=== PATIENT | male | born 1980 | race Caucasian/White ===

== ENCOUNTER 2021-07-13 22:37 | Emergency (ER) | payer SELFPAY ==
--- NOTE | ~2021-07-13 | XR_ITS ---
XR chest 2V DATE: 07/13/2021 22:47 INDICATION: Midsternal chest pain for one year. Shortness of breath. TECHNIQUE: PA and lateral views COMPARISON: 03/31/2017 AP chest FINDINGS: Heart size is within normal range. No hilar or mediastinal enlargement. No pulmonary infilt rate or consolidation, pleural effusion or pulmonary vascular congestion or pneumothorax is detected. Included skeletal structures are unremarkable. Degenerative spurring of the thoracic spine. IMPRESSION: No active cardiopulmonary disease Reviewed, dictated and finalized at location A.
--- NOTE | 2021-07-13 22:40 | ECG_ITS ---
Measurements Intervals [place] Rate: 95 P: 47 HI: 152 QRS: -17 QRSD: 102 T: 107 QT: 371 QTc: 467 Interpretive Statements SINUS RHYTHM POSSIBLE LEFT ATRIAL ENLARGEMENT INCOMPLETE RIGHT BUNDLE BRANCH BLOCK POOR R WAVE PROGRESSION, ANTERIOR LEADS BORDERLINE ST-T WAVE ABNORMALITY- INF/HIGH LAT LEADS BASELINE WANDER- II, III BORDERLINE ECG Electronically Signed On 07-14-2021 6:33:21 CDT by Braden Fernandez D.O.
[2021-07-13 23:17] LABS: Basophils Percent Auto 0.4 % (0.2-1.2); Eosinophils Percent Auto 2.1 % (0-4.4); Hemoglobin 15.5 g/dL (14.0-18.0); Immature Granulocyte Absolute 0.04 K/mm3 (0.00-0.031); Immature Granulocyte Percent A 0.4 % (0-0.5); Lymphocytes Percent Auto 22.4 % (18.3-44.2); Mean Corpuscular Hemoglobin 27.8 pg (26-34); Mean Corpuscular Volume 84.2 fl (80-100); Mean Platelet Volume 10.8 fl (7.4-10.4); Neutrophils Absolute Auto 6.3 K/mm3 (1.3-6.7); Neutrophils Percent Auto 65.7 % (45.5-73.1); Platelet Count Result 288 k/mm3 (150-375); Red Blood Count 5.58 M/mm3 (4.6-6.20); Red Cell Distribution Width 14.2 % (11.5-14.5); White Blood Count 9.6 K/mm3 (4.5-10.0)
[2021-07-13 23:18] LABS: Eosinophils Absolute Auto 0.2 K/mm3 (0-0.3); Lymphocytes Absolute Auto 2.14 K/mm3 (0.9-3.2); Monocytes Absolute Auto 0.9 K/mm3 (0.1-0.6)
[2021-07-13 23:28] LABS: Anion Gap 5 mmol/L (8-16); Blood Urea Nitrogen 11 mg/dL (9-20); Calcium 8.9 mg/dL (8.4-10.2); Carbon Dioxide 29 mmol/L (22-30); Chloride 105 mmol/L (98-107); Estimated Glomerular Filt Rate > 60; Glucose 122 mg/dL (65-110); Potassium 3.6 mmol/L (3.4-5.0); Sodium 139 mmol/L (137-145)
== END 2021-07-14 01:33 | disposition left against medical advice (07) ==
PROVIDERS: Emergency Provider Emergency Medicine
DX: Z53.21 Procedure and treatment not carried out due to patient leaving prior to being seen by health care provider (principal)
CPT/HCPCS: 36415; 71046; 80048; 85025; 93005; 99199

== ENCOUNTER 2021-10-23 16:38 | Observation (INO) | payer MEDICAID, SELFPAY ==
[2021-10-23] VITALS (31 sets, daily range): BP systolic 108–163; BP diastolic 57–99; PULSE 87–108; RESP 17–38; TEMP 36.3–37.9; O2SAT 91–99; BMI 43.4; BMI 43.3
--- NOTE | ~2021-10-23 | CT_ITS ---
EXAMINATION: CTA chest PE protocol DATE: 10/23/2021 18:51 MODEL AND DYE PERSON INDICATION: Elevated d-dimer. Hypoxia. TECHNIQUE: Computed tomographic angiography (CTA) of the chest was performed with 100 mL Omnipaque-35 0 intravenous contrast. The dose-length product was 1054.40 mGy-cm. Maximum intensity projection 3D-r econstructions of the aorta and other arteries were constructed by the technologist on a separate wor kstation. Automated exposure control and iterative reconstruction technique were employed. COMPARISON: None. FINDINGS: Study is technically limited. No large central pulmonary embolism. The peripheral pulmonary arteries particularly in the lower lobes are not well evaluated due to enhancement and motion. 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 No significant pleural or pericardial effusion. There is patchy bilateral groundglass opacification , consistent with pneumonia. No endobronchial lesions. No pneumothorax. No acute osseous abnormality. Mild mediastinal and right hilar lymphadenopathy, likely reactive. Mild thoracic spondylosis. IMPRESSION: 1. Patchy bilateral groundglass opacities, consistent with pneumonia. 2: No large central pulmonary embolism. Evaluation of the peripheral pulmonary arteries limited by m otion. Reviewed, dictated and finalized at location A. L AND DYE PERSON IMPRESSION: 1. Patchy bilateral groundglass opacities, consistent with pneumonia. 2: No large central pulmonary embolism. Evaluation of the peripheral pulmonary arteries limited by motion.
--- NOTE | ~2021-10-23 | XR_ITS ---
XR chest 2V 10/23/2021 17:59 Indication: Shortness of breath, cough and weakness Procedure: AP and lateral views of the chest Comparison: Comparison to multiple prior studies sequentially, with oldest reviewed study dated 10/28. Findings: Borderline heart size. No focal air space disease, pulmonary edema, pleural effusion or dayana pected pneumothorax. Shallow inspiration with crowding of the pulmonary vessels. Impression: 1: No acute cardiopulmonary disease. Reviewed, dictated and finalized at location A. IC WORKER FITTER Impression: 1: No acute cardiopulmonary disease.
--- NOTE | 2021-10-23 16:52 | ECG_ITS ---
Measurements Intervals [place] Rate: 95 P: 26 IN: 128 QRS: 9 QRSD: 104 T: 120 QT: 360 QTc: 453 Interpretive Statements SINUS RHYTHM POSSIBLE LEFT ATRIAL ENLARGEMENT INCOMPLETE RIGHT BUNDLE BRANCH BLOCK BORDERLINE R WAVE PROGRESSION, ANTERIOR LEADS ST-T WAVE ABNORMALITY IN HIGH LATERAL LEADS- CONSIDER ISCHEMIA BASELINE WANDER- I, II, AVR, AVL, V1-V2 ABNORMAL ECG Electronically Signed On 10-24-2021 9:22:56 ELECTRIC SCOOP OPERATOR by Braden Fernandez D.O.
[2021-10-23] MEDS: ALBUTEROL SULFATE NEB 2.5 MG/0.5 ML INH 5 MG INHALATION (17:05)
[2021-10-23] MEDS: IPRATROPIUM BR 0.02% INH SOLN 0.5 MG/2.5 ML VIAL INHALATION (17:05)
--- NOTE | 2021-10-23 17:09 | ED.WEAKNESS ---
HPI - Weakness General Chief complaint: Weakness Stated complaint: WEAKNESS/DIZZY Time Seen by Provider: 10/23/21 16:42 Source: patient History of Present Illness HPI Narrative: Patient presents cough, congestion, shortness of breath, diffuse body aches for the past 2 weeks. Reports overall he just feels weak and cannot manage his symptoms anymore so he came to the ER for evaluation. Denies any past medical history but reports he is not see physicians for regular checkups. He denies any focal areas of pain such as chest pain or abdominal pain does report mild nausea diarrhea as well. Reports is not vaccinated against Covid but does not have any known sick contacts. Related Data Allergies Allergy/AdvReac Type Severity Reaction Status Date / Time codeine Allergy Mild Verified 03/31/17 12:17 Penicillins Allergy Mild Verified 03/31/17 12:17 Review of Systems Review of Systems: CONSTITUTIONAL: Denies fever, chills, or sweats. EYES: Denies visual changes, redness, or discharge. ENT: Denies rhinorrhea, congestion, sore throat, or otalgia. CARDIOVASCULAR: Denies chest pain, palpitations, or edema. RESPIRATORY: Cough and shortness of breath GASTROINTESTINAL: Denies abdominal pain, vomiting, or diarrhea. GENITOURINARY: Denies dysuria or hematuria. SKIN: Denies rash or itching. MUSCULOSKELETAL: Denies back pain, joint pain, or myalgia. NEUROLOGIC: Denies headache, numbness, dizziness, or weakness. PSYCHIATRIC: Denies anxiety or depression. All systems reviewed & are unremarkable except as noted in HPI and below PMFSH Past Medical History Medical History (Updated 10/23/21 @ 20:09 by Dereje Lopez MD) Patient denies significant medical history Social History Social History (Updated 10/23/21 @ 17:11 by Dereje Lopez MD) Smoking status: Never smoker Alcohol intake: former Substance use: never Exam Narrative: GENERAL: Well-appearing, well-nourished, and in no acute distress. HEAD: Normocephalic, atraumatic. EYES: PERRLA and EOMI. ENT: Nares clear, no rhinorrhea or epistaxis. Mucous membranes moist. NECK: Supple. No masses. No JVD CHEST: Mild diffuse wheezing HEART: Regular rate and rhythm. No murmur heard. Normal peripheral pulses. ABDOMEN: Soft, nontender, nondistended, normal active bowel sounds. EXTREMITIES: Normal range of motion. No edema. SKIN: Warm, dry, no rash. NEURO: No focal deficits. Alert and oriented x3. PSYCH: Normal mood and affect. Course Reevaluation(s) Reevaluation #1: Patient feels somewhat improved work-up thus far reviewed with patient. Given his persistent hypoxia patient will be admitted for further management. Patient comfortable inpatient plan. Date: 10/23/21 Time: 20:07 Vital Signs Vital signs: Vital Signs Temperature 37.9 C H 10/23/21 16:43 Pulse Rate 94 10/23/21 16:43 Respiratory Rate 25 H 10/23/21 16:43 Blood Pressure 152/87 H 10/23/21 16:43 Pulse Oximetry 95 10/23/21 16:43 Temperature 37.5 C 10/23/21 21:16 Pulse Rate 93 10/23/21 21:16 Respiratory Rate 27 H 10/23/21 21:16 Blood Pressure 163/86 H 10/23/21 21:16 Pulse Oximetry 96 10/23/21 21:16 MDM - Weakness MDM Narrative Medical decision making narrative: Patient has with cough, congestion, shortness of breath. Patient overall looks clinically well vital signs notable for tachypnea fever and hypoxia. Labs and imaging obtained. Labs were reassuring with section of dimer. Imaging obtained and was without PE but suggestive of pneumonia with diffuse opacities. Primary concern is for Covid however Covid test is pending so patient is empirically started on antibiotics. Patient was given DuoNeb therapies given his wheezing on exam. Due to persistent hypoxia was admitted with team for further management. Patient is comfortable inpatient plan. Lab Data Result diagrams: 10/23/21 17:26 10/23/21 17:26 Labs: Lab Results 10/23/21 10/23/21 10/23/21 Range/Units
[2021-10-23] MEDS: DEXAMETHASONE SOD PHOS INJ 4 MG/ML VIAL 6 MG IV PUSH (17:21)
[2021-10-23] MEDS: SODIUM CHLORIDE 0.9% IV 1,000 ML 999 ML IV CONT (17:21)
[2021-10-23 17:32] LABS: Basophils Percent Auto 0.3 % (0.2-1.2); Hematocrit 51.3 % (42.0-52.0); Hemoglobin 16.9 g/dL (14.0-18.0); Immature Granulocyte Absolute 0.03 K/mm3 (0.00-0.031); Immature Granulocyte Percent A 0.4 % (0-0.5); Lymphocytes Absolute Auto 1.05 K/mm3 (0.9-3.2); Lymphocytes Percent Auto 13.3 % (18.3-44.2); Mean Corpuscular HGB Conc 32.9 g/dl (32-36); Mean Corpuscular Hemoglobin 27.7 pg (26-34); Mean Corpuscular Volume 84.1 fl (80-100); Mean Platelet Volume 11.2 fl (7.4-10.4); Monocytes Absolute Auto 0.6 K/mm3 (0.1-0.6); Monocytes Percent Auto 7.3 % (2.6-8.5); Neutrophils Absolute Auto 6.2 K/mm3 (1.3-6.7); Neutrophils Percent Auto 78.7 % (45.5-73.1); Platelet Count Result 274 k/mm3 (150-375); Red Cell Distribution Width 13.7 % (11.5-14.5); White Blood Count 7.9 K/mm3 (4.5-10.0)
[2021-10-23 17:36] LABS: Alveolar/Arterial O2 Gradient 69.4 mmHg; Fractional Inspired Oxygen 28 %; HCO3 ABG 29.2 mEq/l (22.0-26.0); Oxygen Content ABG 22.3 %vol (16.0-22.0); Oxygen Saturation ABG 95.5 % (95.0-100.0); Oxyhemoglobin 93.9 % THb (90.0-100.0); PCO2 ABG 45.7 mmHg (35.0-45.0); PO2 ABG 76.3 mmHg (80.0-100.0); PO2 FiO2 Ratio Arterial Blood 2.73 %; Total Hemoglobin 16.9 g/dL (12.0-18.0); pH ABG 7.424 (7.350-7.450)
[2021-10-23 17:39] LABS: Modified Allen's Test Pass; Site Drawn LEFT RADIAL
[2021-10-23 17:40] LABS: Device NASAL CANNULA
[2021-10-23 17:45] LABS: Alanine Aminotransferase 129 U/L (4-50); Alkaline Phosphatase 70 U/L (38-126); Anion Gap 7 mmol/L (8-16); Aspartate Amino Transferase 221 U/L (17-59); Bilirubin,Total 0.8 mg/dL (0.2-1.3); Blood Urea Nitrogen 22 mg/dL (9-20); Calcium 8.3 mg/dL (8.4-10.2); Carbon Dioxide 35 mmol/L (22-30); Chloride 91 mmol/L (98-107); Estimated CRCL calculation 90 ml/min; Estimated Glomerular Filt Rate > 60; Glucose 117 mg/dL (65-110); Magnesium 2.3 mg/dL (1.6-2.3); Sodium 133 mmol/L (137-145)
[2021-10-23 18:04] LABS: D Dimer 2.57 ug/mL (<0.48)
--- NOTE | 2021-10-23 20:07 | PM.IMHP ---
H&P: HPI History of Present Illness Date/Time: 10/23/21 20:07 Chief Complaint: Chest pain Narrative: This is a 40-year-old male with known significant past medical history however patient has not been to a doctor in many years. He comes today to the emergency room because he has not been feeling well for the last 2 weeks or so has been having body aches and pains ,chills ,fevers, cough productive of scanty white phlegm, poor appetite has not been drinking or eating, shortness of breath, generalized malaise, no nausea, no vomiting, no diarrhea, no abdominal pain. In the emergency room patient was found to be tachypneic and was placed on supplemental oxygen by nasal cannula preliminary workup was significant for chest x-ray with diffuse bilateral lung infiltrates an ABG showed a pH of 7.4 pCO2 of 45 and PO2 of 76. A COVID 19 PCR is pending. Patient has been admitted for further evaluation, management and treatment. Review of Systems Review of Systems: Generalized malaise, fevers, chills, poor appetite, muscle aches and pains, shortness of breath, cough productive of scanty white phlegm. Constitutional: Constitutional: Reports chills, Reports fatigue, Reports fever(s), Reports lethargy, Reports malaise and Reports poor appetite Eyes: Eyes: Denies change in vision ENT: Denies dysphagia, Denies vertigo, Denies dizziness, Denies nasal congestion, Denies nasal discharge, Denies nasal obstruction and Denies odynophagia Cardiovascular: Cardiovascular: Denies irregular heart rhythm, Denies claudication, Denies leg edema, Denies lightheadedness, Denies radiating jaw, neck or arm pain, Denies palpitations, Denies dyspnea, Denies dyspnea on exertion and Denies orthopnea Respiratory: Respiratory: Reports cough, Reports dyspnea and Reports dyspnea on exertion Gastrointestinal: Gastrointestinal: Denies abdominal pain, Denies dyspepsia, Denies heartburn, Denies diarrhea, Denies nausea and Denies vomiting Genitourinary: Genitourinary: Denies dysuria Musculoskeletal: Musculoskeletal: Reports myalgias, Denies arthralgias and Denies joint swelling Integumentary/Breasts: Skin/Breast: Denies rash Neurologic: Denies vertigo, Denies dizziness, Denies focal weakness and Denies Sensory deficit (Neuro) Psychiatric: Psychiatric: Reports no additional psychiatric complaints and Reports as per HPI Endocrine: Endocrine: Reports no additional endocrine complaints and Reports as per HPI Hematologic/Lymphatic: Hematologic/Lymphatic: Reports no additional hematologic/lymphatic complaints and Reports as per HPI Allergic/Immunologic: Allergic/Immunologic: Reports no additional allergic/immunologic complaints and Reports as per HPI [facility] Past Medical History Medical History (Updated 10/24/21 @ 00:23 by Satish Willams MD) Patient denies significant medical history Social History Social History (Updated 10/23/21 @ 17:11 by Dereje Lopez MD) Smoking status: Never smoker Alcohol intake: former Substance use: never Spiritual care concerns: No Meds Home Medications and Allergies Allergies Allergy/AdvReac Type Severity Reaction Status Date / Time codeine Allergy Mild Verified 03/31/17 12:17 Penicillins Allergy Mild Verified 03/31/17 12:17 Vital Signs Vital Signs - 24 hr 10/23/21 16:43 10/23/21 16:44 10/23/21 16:45 Temperature 100.2 F H Pulse Rate 97 96 94 Respiratory Rate 33 H 30 H 38 H Blood Pressure 152/87 H 152/87 H Pulse Oximetry 98 95 97 10/23/21 17:01 10/23/21 17:14 10/23/21 17:17 Temperature Pulse Rate 100 98 98 Respiratory Rate 18 28 H Blood Pressure Pulse Oximetry 95 10/23/21 17:20 10/23/21 17:30 10/23/21 17:42 Temperature Pulse Rate 104 H 94 108 H Respiratory Rate 28 H 31 H 22 H Blood Pressure Pulse Oximetry 10/23/21 17:45 10/23/21 18:00 10/23/21 18:15 Temperature Pulse Rate 96 92 87 Respiratory Rate 32 H 35 H 33 H Blood Pressure Pulse Oximetry 91 93 10/23/21 1
[2021-10-23] MEDS: SODIUM CHLORIDE 0.9% IV 1,000 ML 125 ML IV CONT (20:50)
--- NOTE | 2021-10-23 21:25 | PC.NURSE ---
called ehather in Lab, notified that UA order did not cross over to print labels, Demo sticker placed on specimen and sent to lab. Heather confirmed and will get UA processing.
[2021-10-23 21:40] LABS: Add Urine Microscopic? YES; Appearance Urine Clear (Clear); Bilirubin Urine Negative (Negative); Blood Urine 1+ (Negative); Color Urine Yellow (Yellow); Glucose Urine UA Negative (Negative); Ketones Urine Trace mg/dL (Negative); Leukocyte Esterase Ur Negative LEU/UL (Negative); Mucus Urine Rare /lpf; Nitrate Urine Negative (Negative); Protein Urine 1+ mg/dL (Negative); Squamous Epithelial Cell Urine Rare /hpf (Few); WBC Urine 0-3 /hpf
[2021-10-23 21:41] LABS: Specific Grav Ur 1.056 (1.001-1.035)
--- NOTE | 2021-10-23 22:03 | PC.NURSE ---
SBAR faxed @ 2032, unable to contact anyone on the floor to notify them that SBAR was sent. 2119- attempted to call report to Fritz ALMAZAN, will call be back in a few minutes. 2136- Fritz called back. Telephone report given. no further questions or comments. 2144- Taken to Rm [id number] by Tech with O2 @ 3L via NC.
--- NOTE | 2021-10-23 22:30 | ADMGEN ---
This patient, Denver Colbert, was admitted to 3 [facility] Surg Room 312-01. Patient/family oriented to hospital policies and general routines including ID bracelet, bed and alarms, visiting hours, pain management, procedures, bathroom and other care routines, personal items, smoking policy, room service/diet, and visiting hours. Information on how to activate the Rapid Response Team has been discussed. Patient/Family are encouraged to report perceived risks to care and to ask questions if they do not understand what they are told or what they should do.
[2021-10-24] VITALS (10 sets, daily range): BP systolic 111–153; BP diastolic 58–96; PULSE 77–100; RESP 18–22; TEMP 36.5–37; O2SAT 92–98
[2021-10-24] MEDS: IPRATROPIUM BR 0.02% INH SOLN 0.5 MG/2.5 ML VIAL INHALATION ×2 (02:56→08:33)
[2021-10-24] MEDS: ALBUTEROL SULFATE NEB 2.5 MG/0.5 ML INH 5 MG INHALATION ×2 (02:56→08:33)
[2021-10-24] MEDS: DEXAMETHASONE SOD PHOS INJ 4 MG/ML VIAL 6 MG IV PUSH (09:20)
--- NOTE | 2021-10-24 09:20 | PM.IMPN ---
Progress Note: A&P Assessment and Plan (1) Pneumonia: Qualifiers: Laterality: unspecified laterality Lung location: unspecified part of lung Pneumonia type: due to unspecified organism Qualified Code(s): J18.9 - Pneumonia, unspecified organism Code(s): J18.9 - Pneumonia, unspecified organism Status: Acute Assessment and Plan: Reports cough with sputum production of thick white sputum Chest xray:No acute cardiopulmonary disease. Chest CTA: Patchy bilateral groundglass opacities, consistent with pneumonia, No PE Regular diet Vitals as per unit protocol Up at [facility] Rocephin and Zithromax Albuterol inhaler for shortness of breath Dexamethasone 6mg IV daily Supplemental oxygen wean to maintain saturation >92% COVID PCR is pending Await cultures Supportive care (2) Acute respiratory failure with hypoxia: Code(s): J96.01 - Acute respiratory failure with hypoxia Status: Acute Assessment and Plan: Blood gas stable on 2LNC On supplemental oxygen by nasal cannula Breathing treatments Supportive care (3) Person under investigation for COVID-19: Code(s): Z20.822 - Contact with and (suspected) exposure to COVID-19 Status: Acute Assessment and Plan: PCR still pending Will get inflammatory labs in the am See above (4) Diarrhea: Code(s): R19.7 - Diarrhea, unspecified Status: Acute Assessment and Plan: For the last 2-4 weeks Could be related to current illness Continue to trend Encourage PO intake and hydration Add banatrol and florestor (5) BPH (benign prostatic hyperplasia): Code(s): N40.0 - Benign prostatic hyperplasia without lower urinary tract symptoms Status: Acute Assessment and Plan: Complains of slow stream Start tamsulosin 0.4mg PO daily Monitor output (6) Leg swelling: Code(s): M79.89 - Other specified soft tissue disorders Status: Acute Assessment and Plan: Has a hx of leg swelling Current 1-2+ pitting edema Check BNP Echo ordered Could be some component of heart failure (7) Acute kidney injury: Code(s): N17.9 - Acute kidney failure, unspecified Status: Acute Assessment and Plan: BUN/Cr elevated 22/1.20 Was 11/0.9 in June Fluids Trend labs Could be from BPH or dehydration Echo in the am (8) Transaminitis: Code(s): R74.01 - Elevation of levels of liver transaminase levels Status: Acute Assessment and Plan: AST/ALT 221/129 Trend labs Hepatitis panel in the am Consider RUQ ultrasound Time Spent With Patient Time with patient: 25 - 35 minutes Subjective Date/time seen: 10/24/21 09:20 Interval history: Date/Time: 10/23/21 20:07 Narrative: This is a 40-year-old male with known significant past medical history however patient has not been to a doctor in many years. He comes today to the emergency room because he has not been feeling well for the last 2 weeks or so has been having body aches and pains ,chills ,fevers, cough productive of scanty white phlegm, poor appetite has not been drinking or eating, shortness of breath, generalized malaise, no nausea, no vomiting, no diarrhea, no abdominal pain. In the emergency room patient was found to be tachypneic and was placed on supplemental oxygen by nasal cannula preliminary workup was significant for chest x-ray with diffuse bilateral lung infiltrates an ABG showed a pH of 7.4 pCO2 of 45 and PO2 of 76. A COVID 19 PCR is pending. Patient has been admitted for further evaluation, management and treatment. Date/Time seen: 10/24/21 09:20 Patient is laying in bed. He is stating that he is still having shortness of breath. He also has diarrhea which he states that he has had for the last 2 weeks to a month. He does still have a taste and smell at this time. He is currently on 2LNC. His
--- NOTE | 2021-10-24 09:20 | P.PNIM_ITS ---
Progress Note: A&P Assessment and Plan (1) Pneumonia: Qualifiers: Laterality: unspecified laterality Lung location: unspecified part of lung Pneumonia type: due to unspecified organism Qualified Code(s): J18.9 - Pneumonia, unspecified organism Code(s): J18.9 - Pneumonia, unspecified organism Status: Acute Assessment and Plan: * Reports cough with sputum production of thick white sputum * Chest xray:No acute cardiopulmonary disease. * Chest CTA: Patchy bilateral groundglass opacities, consistent with pneumonia, No PE * Regular diet * Vitals as per unit protocol * Up at [facility] * Rocephin and Zithromax * Albuterol inhaler for shortness of breath * Dexamethasone 6mg IV daily * Supplemental oxygen wean to maintain saturation >92% * COVID PCR is pending * Await cultures * Supportive care (2) Acute respiratory failure with hypoxia: Code(s): J96.01 - Acute respiratory failure with hypoxia Status: Acute Assessment and Plan: * Blood gas stable on 2LNC * On supplemental oxygen by nasal cannula * Breathing treatments * Supportive care (3) Person under investigation for COVID-19: Code(s): Z20.822 - Contact with and (suspected) exposure to COVID-19 Status: Acute Assessment and Plan: * PCR still pending * Will get inflammatory labs in the am * See above (4) Diarrhea: Code(s): R19.7 - Diarrhea, unspecified Status: Acute Assessment and Plan: * For the last 2-4 weeks * Could be related to current illness * Continue to trend * Encourage PO intake and hydration * Add banatrol and florestor (5) BPH (benign prostatic hyperplasia): Code(s): N40.0 - Benign prostatic hyperplasia without lower urinary tract symptoms Status: Acute Assessment and Plan: * Complains of slow stream * Start tamsulosin 0.4mg PO daily * Monitor output (6) Leg swelling: Code(s): M79.89 - Other specified soft tissue disorders Status: Acute Assessment and Plan: * Has a hx of leg swelling * Current 1-2+ pitting edema * Check BNP * Echo ordered * Could be some component of heart failure (7) Acute kidney injury: Code(s): N17.9 - Acute kidney failure, unspecified Status: Acute Assessment and Plan: * BUN/Cr elevated 22/1.20 * Was 11/0.9 in June * Fluids * Trend labs * Could be from BPH or dehydration * Echo in the am (8) Transaminitis: Code(s): R74.01 - Elevation of levels of liver transaminase levels Status: Acute Assessment and Plan: * AST/ALT 221/129 * Trend labs * Hepatitis panel in the am * Consider RUQ ultrasound Time Spent With Patient Time with patient: 25 - 35 minutes Subjective Date/time seen: 10/24/21 09:20 Interval history: Date/Time: 10/23/21 20:07 Narrative: This is a 40-year-old male with known significant past medical history however patient has not been to a doctor in many years. He comes today to the emergency room because he has not been feeling well for the last 2 weeks or so has been having body aches and pains ,chills ,fevers, cough productive of scanty white phlegm, poor appetite has not been drinking or eating, shortness of breath, generalized malaise, no nausea, no vomiting, no diarrhea, no abdominal pain. In the emergency room patient was found to be tachypneic and was placed
[2021-10-24] MEDS: ALBUTEROL SULFATE (*SP) AEROSOL 1 PUFF 2 PUFF INHALATION ×2 (14:21→20:37)
[2021-10-24] MEDS: SACCHAROMYCES BOULARDII 250 MG CAPSULE PO ×2 (15:19→17:30)
[2021-10-24] MEDS: TAMSULOSIN HCL 0.4 MG CAPSULE PO (15:19)
[2021-10-24] MEDS: SODIUM CHLORIDE 0.9% IV 1,000 ML 75 ML IV CONT (21:43)
[2021-10-24] MEDS: guaiFENesin/DEXTROMETHORPHAN 10 ML UDC 5 ML PO (22:52)
[2021-10-25] VITALS (8 sets, daily range): BP systolic 121–141; BP diastolic 65–89; PULSE 80–102; RESP 14–18; TEMP 36.2–37.1; O2SAT 92–95
--- NOTE | 2021-10-25 | ECHO_ITS ---
Patient Info Name: Denver Colbert Age: 40 years : 1980 Gender: Male Ht: 67 in Wt: 276 lbs BSA: 2.50 m2 HR: 91 bpm BP: 121 / 74 mmHg Technical Quality: Fair Exam Date: 10/25/2021 1:43 PM Exam Location: [facility] Patient Status: Inpatient Admit Date: 10/23/2021 Staff Ordering Physician: Jun López Greens Planter: ALLY Attending Provider: Satish Willams MD Referring Physician: Rene AGUIAR; Exam Type: CA echo doppler color flow Study Info Indications - FLUID STATUS Complete two-dimensional, color flow and Doppler transthoracic echocardiogram is performed. Summary 1. Complete two-dimensional, color flow and Doppler transthoracic echocardiogram is performed. 2. Suboptimal image quality. Borderline LV enlargement and wall thickness at upper limits of normal. Hyperdynamic LV systolic function, ejection fraction more than 70%. Grade 1 diastolic dysfunction. Normal mitral valve structure, no significant MR. Aortic valve not well visualized, no hemodynamically significant stenosis by Doppler. Unable to assess RVSP due to inadequate TR jet. Left Ventricle Left ventricular systolic function is hyperdynamic, estimated at >70%. The left ventricular diastolic function is grade I diastolic dysfunction. Right Ventricle Right ventricular chamber dimension is normal. Right ventricular systolic function is normal. Left Atria Left atrial chamber dimension is normal. Right Atria Right atrial chamber dimension is normal. Aortic Valve The aortic valve is not well visualized. There is no aortic valve stenosis. Pulmonic Valve The pulmonic valve is not well visualized. Mitral Valve The mitral valve has normal leaflets. Tricuspid Valve The tricuspid valve leaflets are not well visualized. Pericardium/Pleural The pericardium appears epicardial fat pad. Aorta The aortic root size at the sinus of Valsalva is not well visualized. Left Ventricular Outflow Tract Name Value Normal LVOT 2D LVOT Diameter 2.2 cm LVOT Doppler LVOT Peak Gradient 9 mmHg LVOT Mean Gradient 5 mmHg LVOT VTI 22 cm LVOT VTI/AV VTI Ratio 0.9 LVOT Stroke Volume 81 ml LVOT CO 7.1 l/min LVOT CI 2.9 l/min/m2 Pulmonic Valve Name Value Normal PV Doppler PV Peak Gradient 5 mmHg Mitral Valve Name Value Normal MV Doppler MV Decel [place] 274 cm/s2 MV PHT
[2021-10-25] MEDS: ALBUTEROL SULFATE (*SP) AEROSOL 1 PUFF 2 PUFF INHALATION ×3 (02:23→14:06)
--- NOTE | 2021-10-25 02:25 | PCRCNOTE ---
nasal cannula was on floor when therapist came into room. when asked when he had it off and why, the patient stated he had a nose bleed and the RN took him off of the cannula. therapist checked 02 sat at 92%. therapist left cannula off of pt and kept him on room air.
[2021-10-25 07:47] LABS: Basophils Percent Auto 0.4 % (0.2-1.2); Eosinophils Percent Auto 0.4 % (0-4.4); Hemoglobin 14.9 g/dL (14.0-18.0); Immature Granulocyte Absolute 0.06 K/mm3 (0.00-0.031); Immature Granulocyte Percent A 0.7 % (0-0.5); Mean Corpuscular HGB Conc 33.1 g/dl (32-36); Mean Corpuscular Hemoglobin 27.4 pg (26-34); Mean Corpuscular Volume 82.9 fl (80-100); Monocytes Absolute Auto 0.7 K/mm3 (0.1-0.6); Neutrophils Percent Auto 70.5 % (45.5-73.1); Platelet Count Result 371 k/mm3 (150-375); Red Blood Count 5.43 M/mm3 (4.6-6.20); Red Cell Distribution Width 13.6 % (11.5-14.5); White Blood Count 8.5 K/mm3 (4.5-10.0)
[2021-10-25 07:51] LABS: Alanine Aminotransferase 127 U/L (4-50); Albumin Level 3.5 g/dL (3.5-5.1); Alkaline Phosphatase 59 U/L (38-126); Anion Gap 6 mmol/L (8-16); Aspartate Amino Transferase 135 U/L (17-59); Bilirubin,Total 0.5 mg/dL (0.2-1.3); Blood Urea Nitrogen 17 mg/dL (9-20); CRP 1.8 mg/dL (<1.0); Calcium 8.4 mg/dL (8.4-10.2); Carbon Dioxide 31 mmol/L (22-30); Chloride 100 mmol/L (98-107); Estimated CRCL calculation 134 ml/min; Estimated Glomerular Filt Rate > 60; Glucose 114 mg/dL (65-110); Lactate Dehydrogenase 1100 U/L (313-618); Magnesium 2.2 mg/dL (1.6-2.3); Potassium 3.9 mmol/L (3.4-5.0); Sodium 137 mmol/L (137-145)
[2021-10-25 07:53] LABS: D Dimer 2.67 ug/mL (<0.48)
[2021-10-25 07:57] LABS: NT Pro B Type Natriuretic Pept 129 pg/mL (5-100)
[2021-10-25 08:20] LABS: Atypical Lymphocytes Present; Platelet Estimate Adequate (Adequate)
[2021-10-25 08:24] LABS: Hepatitis B Surface Antigen Negative (Negative)
[2021-10-25 08:30] LABS: HAV RESULT Negative (Negative); Hepatitis B Core IgM Result Negative (Negative)
[2021-10-25 08:42] LABS: Hepatitis C Virus Antibody Negative (Negative)
[2021-10-25] MEDS: ONDANSETRON INJ 4 MG/2 ML VIAL IV PUSH (08:58)
[2021-10-25] MEDS: DEXAMETHASONE SOD PHOS INJ 4 MG/ML VIAL 6 MG IV PUSH (09:02)
[2021-10-25] MEDS: SACCHAROMYCES BOULARDII 250 MG CAPSULE PO ×2 (09:03→13:00)
[2021-10-25] MEDS: TAMSULOSIN HCL 0.4 MG CAPSULE PO (09:03)
--- NOTE | 2021-10-25 10:03 | P.PNIM_ITS ---
Progress Note: A&P Assessment and Plan (1) Pneumonia: Qualifiers: Laterality: unspecified laterality Lung location: unspecified part of lung Pneumonia type: due to unspecified organism Qualified Code(s): J18.9 - Pneumonia, unspecified organism Code(s): J18.9 - Pneumonia, unspecified organism Status: Acute Assessment and Plan: * Reports cough with sputum production of thick white sputum * Chest xray:No acute cardiopulmonary disease. * Chest CTA: Patchy bilateral groundglass opacities, consistent with pneumonia, No PE * Regular diet * Vitals as per unit protocol * Up at [facility] * Rocephin and Zithromax Day 2 * Albuterol inhaler for shortness of breath * Dexamethasone 6mg IV daily Day 2 * Supplemental oxygen wean to maintain saturation >92%, currently on room air sating 94-95% * COVID PCR is still pending * Await cultures * Supportive care (2) Acute respiratory failure with hypoxia: Code(s): J96.01 - Acute respiratory failure with hypoxia Status: Acute Assessment and Plan: * Blood gas stable from 10/24/21 * supplemental oxygen by nasal cannula * Breathing treatments * Supportive care (3) Person under investigation for COVID-19: Code(s): Z20.822 - Contact with and (suspected) exposure to COVID-19 Status: Acute Assessment and Plan: * PCR still pending * Inflammatory labs: Dimer 2.67, Ferritin 286, LDH 1100, CRP 1.8, BNP 129 * See above (4) Diarrhea: Code(s): R19.7 - Diarrhea, unspecified Status: Acute Assessment and Plan: * For the last 2-4 weeks * Could be related to current illness * Continue to trend * Encourage PO intake and hydration * Add banatrol and florestor (5) BPH (benign prostatic hyperplasia): Code(s): N40.0 - Benign prostatic hyperplasia without lower urinary tract symptoms Status: Acute Assessment and Plan: * Complains of slow stream * Start tamsulosin 0.4mg PO daily * Monitor output (6) Leg swelling: Code(s): M79.89 - Other specified soft tissue disorders Status: Acute Assessment and Plan: * Has a hx of leg swelling * Current 1-2+ pitting edema * BNP 129 * Echo ordered * Could be some component of heart failure * Lasix IV 20mg once (7) Acute kidney injury: Code(s): N17.9 - Acute kidney failure, unspecified Status: Acute Assessment and Plan: * BUN/Cr back at baseline 17/0.80 * Was 11/0.9 in June * Fluids discontinued at this time * Trend labs * Could be from BPH or dehydration * Echo in the am (8) Transaminitis: Code(s): R74.01 - Elevation of levels of liver transaminase levels Status: Acute Assessment and Plan: * AST/ALT 135/127 trending down * Trend labs * Hepatitis panel negative * RUQ ultrasound ordered * Could be related to covid status, however, still awaiting covid results Time Spent With Patient Time with patient: Greater than 35 minutes Subjective Date/time seen: 10/25/21 09:00 Interval history: Date/Time: 10/23/21 20:07 Narrative: This is a 40-year-old male with known significant past medical history however patient has not been to a doctor in many years. He comes today to the emergency room because he has not been feeling well for the last 2 weeks or so has been having body aches and pains ,chills ,fevers, cough prod
--- NOTE | 2021-10-25 10:03 | PM.IMPN ---
Progress Note: A&P Assessment and Plan (1) Pneumonia: Qualifiers: Laterality: unspecified laterality Lung location: unspecified part of lung Pneumonia type: due to unspecified organism Qualified Code(s): J18.9 - Pneumonia, unspecified organism Code(s): J18.9 - Pneumonia, unspecified organism Status: Acute Assessment and Plan: Reports cough with sputum production of thick white sputum Chest xray:No acute cardiopulmonary disease. Chest CTA: Patchy bilateral groundglass opacities, consistent with pneumonia, No PE Regular diet Vitals as per unit protocol Up at [facility] Rocephin and Zithromax Day 2 Albuterol inhaler for shortness of breath Dexamethasone 6mg IV daily Day 2 Supplemental oxygen wean to maintain saturation >92%, currently on room air sating 94-95% COVID PCR is still pending Await cultures Supportive care (2) Acute respiratory failure with hypoxia: Code(s): J96.01 - Acute respiratory failure with hypoxia Status: Acute Assessment and Plan: Blood gas stable from 10/24/21 supplemental oxygen by nasal cannula Breathing treatments Supportive care (3) Person under investigation for COVID-19: Code(s): Z20.822 - Contact with and (suspected) exposure to COVID-19 Status: Acute Assessment and Plan: PCR still pending Inflammatory labs: Dimer 2.67, Ferritin 286, LDH 1100, CRP 1.8, BNP 129 See above (4) Diarrhea: Code(s): R19.7 - Diarrhea, unspecified Status: Acute Assessment and Plan: For the last 2-4 weeks Could be related to current illness Continue to trend Encourage PO intake and hydration Add banatrol and florestor (5) BPH (benign prostatic hyperplasia): Code(s): N40.0 - Benign prostatic hyperplasia without lower urinary tract symptoms Status: Acute Assessment and Plan: Complains of slow stream Start tamsulosin 0.4mg PO daily Monitor output (6) Leg swelling: Code(s): M79.89 - Other specified soft tissue disorders Status: Acute Assessment and Plan: Has a hx of leg swelling Current 1-2+ pitting edema BNP 129 Echo ordered Could be some component of heart failure Lasix IV 20mg once (7) Acute kidney injury: Code(s): N17.9 - Acute kidney failure, unspecified Status: Acute Assessment and Plan: BUN/Cr back at baseline 17/0.80 Was 11/0.9 in June Fluids discontinued at this time Trend labs Could be from BPH or dehydration Echo in the am (8) Transaminitis: Code(s): R74.01 - Elevation of levels of liver transaminase levels Status: Acute Assessment and Plan: AST/ALT 135/127 trending down Trend labs Hepatitis panel negative RUQ ultrasound ordered Could be related to covid status, however, still awaiting covid results Time Spent With Patient Time with patient: Greater than 35 minutes Subjective Date/time seen: 10/25/21 09:00 Interval history: Date/Time: 10/23/21 20:07 Narrative: This is a 40-year-old male with known significant past medical history however patient has not been to a doctor in many years. He comes today to the emergency room because he has not been feeling well for the last 2 weeks or so has been having body aches and pains ,chills ,fevers, cough productive of scanty white phlegm, poor appetite has not been drinking or eating, shortness of breath, generalized malaise, no nausea, no vomiting, no diarrhea, no abdominal pain. In the emergency room patient was found to be tachypneic and was placed on supplemental oxygen by nasal cannula preliminary workup was significant for chest x-ray with diffuse bilateral lung infiltrates an ABG showed a pH of 7.4 pCO2 of 45 and PO2 of 76. A COVID 19 PCR is pending. Patient has been admitted for further evaluation, management and treatment. Date/Time seen: 10/24/21 09:20 Patient is laying
[2021-10-25] MEDS: FUROSEMIDE INJ 40 MG/4 ML VIAL 20 MG IV PUSH (11:49)
--- NOTE | 2021-10-25 13:36 | PC.NURSE ---
Pt wants to leave AMA. Pt said I could do this at home . Pt was on 4L NC at 2100. Excessive nosebleeds started last night causing the patient to remove his nasal cannula frequently. Covid test pending, ECHO ordered, IVPBx2 antibiotics started, patient currently on room air at 94%. RN called lab, will have covid result around 1900. Cardiology on the way for ECHO. RN talked with the Pt educate the pt on plan of care. Edgar HERNANDEZ will discuss inpatient status with Pt again today. Pt said he will wait until this evening to decide if he will leave AMA or stay.
--- NOTE | 2021-10-25 14:00 | PM.DS ---
DS: Admitting Diagnosis Discharge Date Date of service 10/25/21 @ 1400 Admitting Diagnosis Shortness of breath DS: Discharge Diagnosis Discharge Diagnosis (1) Pneumonia: Qualifiers: Laterality: unspecified laterality Lung location: unspecified part of lung Pneumonia type: due to unspecified organism Qualified Code(s): J18.9 - Pneumonia, unspecified organism Code(s): J18.9 - Pneumonia, unspecified organism Status: Acute Assessment and Plan: Reports cough with sputum production of thick white sputum Chest xray:No acute cardiopulmonary disease. Chest CTA: Patchy bilateral groundglass opacities, consistent with pneumonia, No PE Regular diet Vitals as per unit protocol Up at [facility] Rocephin and Zithromax Day 2 Albuterol inhaler for shortness of breath Dexamethasone 6mg IV daily Day 2 Supplemental oxygen wean to maintain saturation >92%, currently on room air sating 94-95% COVID PCR is positive Await cultures Supportive care (2) Acute respiratory failure with hypoxia: Code(s): J96.01 - Acute respiratory failure with hypoxia Status: Acute Assessment and Plan: Blood gas stable from 10/24/21 supplemental oxygen by nasal cannula Breathing treatments Supportive care (3) Person under investigation for COVID-19: Code(s): Z20.822 - Contact with and (suspected) exposure to COVID-19 Status: Acute Assessment and Plan: PCR positive Inflammatory labs: Dimer 2.67, Ferritin 286, LDH 1100, CRP 1.8, BNP 129 See above (4) Diarrhea: Code(s): R19.7 - Diarrhea, unspecified Status: Acute Assessment and Plan: For the last 2-4 weeks Could be related to current illness Continue to trend Encourage PO intake and hydration Add banatrol and florestor (5) BPH (benign prostatic hyperplasia): Code(s): N40.0 - Benign prostatic hyperplasia without lower urinary tract symptoms Status: Acute Assessment and Plan: Complains of slow stream Start tamsulosin 0.4mg PO daily Monitor output (6) Leg swelling: Code(s): M79.89 - Other specified soft tissue disorders Status: Acute Assessment and Plan: Has a hx of leg swelling Current 1-2+ pitting edema BNP 129 Echo ordered Could be some component of heart failure Lasix IV 20mg once (7) Acute kidney injury: Code(s): N17.9 - Acute kidney failure, unspecified Status: Acute Assessment and Plan: BUN/Cr back at baseline 17/0.80 Was 11/0.9 in June Fluids discontinued at this time Trend labs Could be from BPH or dehydration Echo pending (8) Transaminitis: Code(s): R74.01 - Elevation of levels of liver transaminase levels Status: Acute Assessment and Plan: AST/ALT 135/127 trending down Trend labs Hepatitis panel negative Could be related to covid status, however, still awaiting covid results DS: Summary Hospital Course Hospital Course: Patient is a 40-year-old male with a no significant past medical history who presented the ED with complaints of flu-like symptoms including shortness of breath. Since patient has been admitted patient has been treated with IV fluids for elevated BUN creatinine IV antibiotics for pneumonia that was seen on the CTA and the chest x-ray. Patient was also tested for COVID-19 which results have not came back yet. Patient has also been treated with IV Decadron. Patient is ready to go home I have talked to the patient about oxygen requirements. Patient was recently on oxygen and was off oxygen this morning and has remained on room air throughout the entire day with O2 sats maintaining greater than 92%. Patient also stated that he was having issues creating a stream and was started on tamsulosin which he will continue outpatient. Patient also had an echocardiogram done for intermittent leg swelling however [place]
--- NOTE | 2021-10-25 14:00 | P.DS_ITS ---
DS: Admitting Diagnosis Discharge Date Date of service 10/25/21 @ 1400 Admitting Diagnosis Shortness of breath DS: Discharge Diagnosis Discharge Diagnosis (1) Pneumonia: Qualifiers: Laterality: unspecified laterality Lung location: unspecified part of lung Pneumonia type: due to unspecified organism Qualified Code(s): J18.9 - Pneumonia, unspecified organism Code(s): J18.9 - Pneumonia, unspecified organism Status: Acute Assessment and Plan: * Reports cough with sputum production of thick white sputum * Chest xray:No acute cardiopulmonary disease. * Chest CTA: Patchy bilateral groundglass opacities, consistent with pneumonia, No PE * Regular diet * Vitals as per unit protocol * Up at [facility] * Rocephin and Zithromax Day 2 * Albuterol inhaler for shortness of breath * Dexamethasone 6mg IV daily Day 2 * Supplemental oxygen wean to maintain saturation >92%, currently on room air sating 94-95% * COVID PCR is positive * Await cultures * Supportive care (2) Acute respiratory failure with hypoxia: Code(s): J96.01 - Acute respiratory failure with hypoxia Status: Acute Assessment and Plan: * Blood gas stable from 10/24/21 * supplemental oxygen by nasal cannula * Breathing treatments * Supportive care (3) Person under investigation for COVID-19: Code(s): Z20.822 - Contact with and (suspected) exposure to COVID-19 Status: Acute Assessment and Plan: * PCR positive * Inflammatory labs: Dimer 2.67, Ferritin 286, LDH 1100, CRP 1.8, BNP 129 * See above (4) Diarrhea: Code(s): R19.7 - Diarrhea, unspecified Status: Acute Assessment and Plan: * For the last 2-4 weeks * Could be related to current illness * Continue to trend * Encourage PO intake and hydration * Add banatrol and florestor (5) BPH (benign prostatic hyperplasia): Code(s): N40.0 - Benign prostatic hyperplasia without lower urinary tract symptoms Status: Acute Assessment and Plan: * Complains of slow stream * Start tamsulosin 0.4mg PO daily * Monitor output (6) Leg swelling: Code(s): M79.89 - Other specified soft tissue disorders Status: Acute Assessment and Plan: * Has a hx of leg swelling * Current 1-2+ pitting edema * BNP 129 * Echo ordered * Could be some component of heart failure * Lasix IV 20mg once (7) Acute kidney injury: Code(s): N17.9 - Acute kidney failure, unspecified Status: Acute Assessment and Plan: * BUN/Cr back at baseline 17/0.80 * Was 11/0.9 in June * Fluids discontinued at this time * Trend labs * Could be from BPH or dehydration * Echo pending (8) Transaminitis: Code(s): R74.01 - Elevation of levels of liver transaminase levels Status: Acute Assessment and Plan: * AST/ALT 135/127 trending down * Trend labs * Hepatitis panel negative * Could be related to covid status, however, still awaiting covid results DS: Summary Hospital Course Hospital Course: Patient is a 40-year-old male with a no significant past medical history who presented the ED with complaints of flu-like symptoms including shortness of breath. Since patient has been admitted patient has been treated with IV fluids for elevated BUN creatinine IV antibiotics for pneumonia that was seen on the CTA and the chest
[2021-10-25 20:05] LABS: SARS-CoV-2 RNA PCR Positive
== END 2021-10-25 14:45 | disposition home or self-care (01) ==
LOC: ANHED 20:21 → ANH3MEDSUR 10-25 14:28
PROVIDERS: Nurse Practitioner; Admitting Provider Internal Medicine; Emergency Provider Emergency Medicine; Visit Provider Family Medicine
DX: U07.1 COVID-19 (principal); J12.82 Pneumonia due to coronavirus disease 2019; J96.01 Acute respiratory failure with hypoxia; R19.7 Diarrhea, unspecified; N40.0 Benign prostatic hyperplasia without lower urinary tract symptoms; M79.89 Other specified soft tissue disorders; N17.9 Acute kidney failure, unspecified; R74.01 Elevation of levels of liver transaminase levels
CPT/HCPCS: 36415; 36600; 71046; 71275; 80053; 80074; 81001; 82728; 82805; 83605; 83615; 83735; 83880; 84443; 85025; 85380; 86140; 87040; 93005; 93306; 94640; 96361; 96365; 96374; 96375; 96376; 99285; A9270; C9803; G0378; G0379; J0131; J0456; J0696; J1100; J1940; J2405; J7030; Q9967; U0003; U0005

== ENCOUNTER 2022-04-19 16:53 | Emergency (ER) | payer OTHER, SELFPAY ==
--- NOTE | ~2022-04-19 | XR_ITS ---
EXAMINATION: XR chest 2V 04/19/2022 17:26 INDICATION: Shortness of breath PROCEDURE: 2 view chest COMPARISON: Comparison to multiple prior studies sequentially, with oldest reviewed study dated 01/09. FINDINGS: The lungs are clear. The cardiomediastinal silhouette is within normal limits. There are no pleural effusions. There is no pneumothorax suspected. IMPRESSION: 1: NO ACUTE CARDIOPULMONARY DISEASE. Reviewed, dictated and finalized at location A.
[2022-04-19 17:04] VITALS: BP 182/89; PULSE 94; RESP 20; TEMP 36; O2SAT 97
--- NOTE | 2022-04-19 17:04 | ED.URI ---
HPI - URI/Sore Throat General Chief Complaint: Upper Respiratory Infection Stated Complaint: Shortness of Breath Time Seen by Provider: 04/19/22 17:04 Source: patient Mode of arrival: ambulatory Limitations: no limitations History of Present Illness HPI Narrative: 41-year-old male presented for complaint of shortness of breath for 3 days. States it feels like someone is pushing against his chest restricting the breath. Endorses occasional palpitations. Also endorses he had been hospitalized in September 2021 for sob requiring oxygen, signed out AMA and states he does not know why he was hospitalized. He states he works outside. Endorses occasional head ache, dizziness, and has been sleeping for the last 3 days. He denies cough, wheezing, nausea, vomiting, body aches, fevers or chills. He does not smoke. Endorses a history of asthma but does not have an inhaler. He states he is vaccinated for flu, not boosted for COVID. Related Data Allergies Allergy/AdvReac Type Severity Reaction Status Date / Time codeine Allergy Mild Other Verified 04/19/22 17:05 Penicillins Allergy Mild Other Verified 04/19/22 17:05 Review of Systems Review of Systems: All systems reviewed & are unremarkable except as noted in HPI and below PMFSH Past Medical History Medical History Patient denies significant medical history Social History Social History Smoking status: Never smoker Alcohol intake: former Substance use: never Spiritual care concerns: No Comments At time of signature, I have reviewed and agree with nursing past medical, surgical, social and family history unless otherwise noted. Please see nursing chart for further information. There is no relevant family history pertinent to the presenting complaint Exam Narrative: GENERAL: Ill-appearing, nontoxic, older than stated age. Talkative. EYES: EOMI. No redness or drainage. Conjunctivae normal. ENT: Mucous membranes pink and moist. No rhinorrhea. TMs normal bilaterally. Throat normal. Uvula midline. NECK: Normal AROM. Supple. No lymphadenopathy. CHEST: No respiratory distress. Clear to auscultation. HEART: Regular rate and rhythm. No murmur appreciated. Normal peripheral pulses. ABDOMEN: Soft, large, nontender, nondistended, normal active bowel sounds. MUSCULOSKELETAL: No bony tenderness. EXTREMITIES: Normal range of motion. No edema. SKIN: Warm, dry, no rash. Capillary refill normal. Normal skin turgor. NEURO: No focal deficits. Alert and oriented x3. Gait steady. PSYCH: Normal affect. Course Course Emergency Course: Patient is aware of diagnosis, understands and agrees to treatment plan. Anticipatory guidance given. Patient agrees to follow-up as directed and is aware of reasons to seek care at the emergency department. Portions of this record may have been created with voice recognition software Level of Care: Express Care Visit Vital Signs Vital signs: Vital Signs Temperature 96.8 F L 04/19/22 17:04 Pulse Rate 94 04/19/22 17:04 Respiratory Rate 20 04/19/22 17:04 Blood Pressure 182/89 H 04/19/22 17:04 Pulse Oximetry 97 04/19/22 17:04 Oxygen Delivery Room Air 04/19/22 17:04 Temperature 96.8 F L 04/19/22 17:04 Pulse Rate 94 04/19/22 17:04 Respiratory Rate 20 04/19/22 17:04 Blood Pressure 182/89 H 04/19/22 17:04 Pulse Oximetry 97 04/19/22 17:04 Oxygen Delivery Room Air 04/19/22 17:04 MDM - URI/Sore Throat MDM Narrative Medical decision making narrative: Chest x-ray negative, EKG showed normal sinus rhythm, unremarkable. Reviewed with patient. He is nontoxic, stable appearing and talkative throughout the encounter. He is aware there are multiple possible etiologies of his shortness of breath that we are unable to evaluate for today. He is advised to closely monitor symptoms and go to the ER for a
--- NOTE | 2022-04-19 17:26 | ECG_ITS ---
Measurements Intervals [place] Rate: 88 P: 58 VT: 155 QRS: 54 QRSD: 105 T: 131 QT: 352 QTc: 427 Interpretive Statements SINUS RHYTHM POSSIBLE LEFT ATRIAL ENLARGEMENT INCOMPLETE RIGHT BUNDLE BRANCH BLOCK DELAYED PRECORDIAL R/S TRANSITION ST-T WAVE ABNORMALITY IN ANTEROLAT/HIGH LAT LEADS- CONSIDER ISCHEMIA ABNORMAL ECG Electronically Signed On 04-19-2022 20:13:13 CDT by Braden Fernandez D.O.
== END 2022-04-19 17:43 | disposition home or self-care (01) ==
PROVIDERS: Emergency Provider Nurse Practitioner Family
DX: R06.00 Dyspnea, unspecified (principal); I45.10 Unspecified right bundle-branch block; R94.31 Abnormal electrocardiogram [ECG] [EKG]
CPT/HCPCS: 71046; 93005; 99213; G0463

== ENCOUNTER 2022-08-03 15:11 | Emergency (ER) | payer OTHER, SELFPAY ==
--- NOTE | 2022-08-03 15:44 | PC.NURSE ---
2nd call no answer
== END 2022-08-03 15:55 | disposition left against medical advice (07) ==
LOC: ANHED 15:53
DX: Z53.21 Procedure and treatment not carried out due to patient leaving prior to being seen by health care provider (principal)
CPT/HCPCS: 99199

== ENCOUNTER 2022-08-03 18:35 | Emergency (ER) | payer OTHER, SELFPAY ==
--- NOTE | ~2022-08-03 | XR_ITS ---
XR chest 2V DATE: 08/03/2022 21:15 INDICATION: Cough, shortness of breath TECHNIQUE: PA and lateral views COMPARISON: 04/19/2022 2 view chest FINDINGS: Normal heart size. No hilar or mediastinal enlargement. No pulmonary infiltrate or consolid ation, pleural effusion or pulmonary vascular congestion or pneumothorax. IMPRESSION: No active cardiopulmonary disease Reviewed, dictated and finalized at location A.
[2022-08-03 18:44] VITALS: BP 180/99; PULSE 99; RESP 16; TEMP 36.4; O2SAT 99
--- NOTE | 2022-08-03 19:07 | PC.NURSE ---
Patient to the ED with complaints of SOB and feeling like since Monday. Patient denies CP.
[2022-08-03 20:07] LABS: Influenza A QL RT-PCR Negative (Negative); Influenza B QL RT-PCR Negative (Negative)
--- NOTE | 2022-08-03 20:32 | ED.URI ---
HPI - URI/Sore Throat General Chief Complaint: Upper Respiratory Infection Stated Complaint: body aches, fever, congestion Time Seen by Provider: 08/03/22 20:32 History of Present Illness HPI Narrative: Pt is a 41 yo M presenting with congestion and body aches. States for the last 3-4 days he has had diffuse body aches which are only moderately helped by tylenol. Also reports a dry cough and congestion. States he had COVID last year and has since struggled with chronic fatigue. Denies headache, numbness/weakness, chest pain, SOB, abdominal pain, n/v/d, leg swelling. Related Data Allergies Allergy/AdvReac Type Severity Reaction Status Date / Time codeine Allergy Mild Other Verified 04/19/22 17:05 Penicillins Allergy Mild Other Verified 04/19/22 17:05 Review of Systems Review of Systems: All systems reviewed & are unremarkable except as noted in HPI and below PMFSH Past Medical History Medical History Patient denies significant medical history Social History Social History Smoking status: Never smoker Alcohol intake: former Substance use: never Spiritual care concerns: No Exam Const: General: no acute distress and alert HENMT: Head: normal to inspection General nose exam: Nasal discharge present Mouth: Yes Normal oral and palatal mucosa present and Yes moist mucous membranes Throat: posterior oropharynx normal Eyes: Conjunctivae: conjunctivae normal Pupils: Equal, round and reactive pupils present EOM: EOMs intact bilaterally Neck: Neck: normal visual inspection and no lymphadenopathy Resp: Effort & Inspection: normal respiratory effort Auscultation: clear to auscultation bilaterally Cardio: Rate: regular rate Rhythm: regular rhythm GI: GI Palp: Yes Soft to palpation and No Tenderness to palpation present (GI) Skin: General skin exam: normal color Neuro: General: patient oriented x3, moves all extremities, no focal motor deficits and CN's II-XI intact bilaterally Extrem: General: normal to inspection Course Course Emergency Course: Pt is a 41 yo M presenting with URI symptoms. Pt is hypertensive, otherwise vitals are within normal limits. Pt is nontoxic, in non acute distress. Exam is unremarkable. CXR without acute abnormalties. Pt is positive for COVID19. Appropriate supportive care and return precautions discussed. Pt voiced understanding, is agreeable with plan. Discharged in stable condition. Vital Signs Vital signs: Vital Signs Temperature 97.5 F L 08/03/22 18:44 Pulse Rate 99 08/03/22 18:44 Respiratory Rate 16 08/03/22 18:44 Blood Pressure 180/99 H 08/03/22 18:44 Pulse Oximetry 99 08/03/22 18:44 Oxygen Delivery Room Air 08/03/22 18:44 Temperature 97.5 F L 08/03/22 18:44 Pulse Rate 99 08/03/22 18:44 Respiratory Rate 16 08/03/22 18:44 Blood Pressure 180/99 H 08/03/22 18:44 Pulse Oximetry 99 08/03/22 18:44 Oxygen Delivery Room Air 08/03/22 18:44 MDM - URI/Sore Throat Lab Data Labs: Lab Results 08/03/22 08/03/22 Range/Units 19:18 19:19 Influenza A (RT-PCR) Negative (Negative) Influenza B (RT-PCR) Negative (Negative) SARS-CoV-2 RNA (RT-PCR) Cancelled Positive A Discharge Plan Discharge Clinical Impression: COVID-19 Patient Disposition: Home, Self-Care Condition: Stable Instructions: Antibiotic Form, COVID-19 (Coronavirus Disease 2019) (ED) Prescriptions: No Action methylprednisolone [Medrol (Oumar)] 4 mg tablets,dose pack See Rx Instructions .ROUTE .COMPLEX Qty: 21 0RF Rx Instructions: orally per package directions albuterol sulfate 90 mcg/actuation HFA aerosol inhaler 1 inh inhalation QID PRN (Reason: shortness of breath or wheezing) Qty: 8.5 0RF Follow-up/Referrals: PHYSICIAN,DIRECTOR OF CORPORATE SALES [Primary Care Provider] - Jaime Degroot MD [Physician] - Mario Butler
[2022-08-03] MEDS: KETOROLAC 30 MG/ML VIAL (*BKC) IM (21:07)
[2022-08-03 21:43] LABS: SARS-CoV-2 RNA PCR Positive
== END 2022-08-03 22:43 | disposition home or self-care (01) ==
PROVIDERS: Emergency Medicine; Emergency Provider Emergency Medicine
DX: U07.1 COVID-19 (principal); Z86.16 Personal history of COVID-19
CPT/HCPCS: 71046; 87502; 96372; 99283; C9803; J1885; U0003; U0005

== ENCOUNTER 2023-07-18 14:55 | Emergency (ER) | payer OTHER, SELFPAY ==
[2023-07-18 15:29] VITALS: BP 185/102; PULSE 81; RESP 18; TEMP 36.5; O2SAT 99
--- NOTE | 2023-07-18 15:34 | ECG_ITS ---
Measurements Intervals [place] Rate: 75 P: 43 [place]: 144 QRS: -3 QRSD: 111 T: 180 QT: 397 QTc: 445 Interpretive Statements SINUS RHYTHM POSSIBLE LEFT ATRIAL ENLARGEMENT [-0.1mV P WAVE IN V1/V2] INCOMPLETE RIGHT BUNDLE BRANCH BLOCK [90+ ms QRS DURATION, TERMINAL R IN V1/V2, 40+ ms S IN I/aVL/V4/V5/V6] COMPARED TO ECG 04/19/2022 17:25:27 NO SIGNIFICANT CHANGES Electronically Signed On 07-19-2023 11:31:57 CDT by Florina Jimenez M.D.
[2023-07-18 15:59] LABS: Basophils Absolute Auto 0.1 K/mm3 (0.0-0.1); Basophils Percent Auto 0.6 % (0.2-1.2); Eosinophils Absolute Auto 0.3 K/mm3 (0-0.3); Eosinophils Percent Auto 3.1 % (0-4.4); Hematocrit 46.9 % (42.0-52.0); Hemoglobin 15.3 g/dL (14.0-18.0); Immature Granulocyte Absolute 0.03 K/mm3 (0.00-0.031); Immature Granulocyte Percent A 0.4 % (0-0.5); Lymphocytes Absolute Auto 1.68 K/mm3 (0.9-3.2); Lymphocytes Percent Auto 20.5 % (18.3-44.2); Mean Corpuscular HGB Conc 32.6 g/dl (32-36); Mean Corpuscular Hemoglobin 28.3 pg (26-34); Mean Corpuscular Volume 86.7 fl (80-100); Mean Platelet Volume 10.6 fl (7.4-10.4); Monocytes Absolute Auto 0.7 K/mm3 (0.1-0.6); Monocytes Percent Auto 8.1 % (2.6-8.5); Neutrophils Absolute Auto 5.5 K/mm3 (1.3-6.7); Neutrophils Percent Auto 67.3 % (45.5-73.1); Platelet Count Result 280 k/mm3 (150-375); Red Blood Count 5.41 M/mm3 (4.6-6.20); Red Cell Distribution Width 14.4 % (11.5-14.5); White Blood Count 8.2 K/mm3 (4.5-10.0)
[2023-07-18 16:10] LABS: Alanine Aminotransferase 34 U/L (6-50); Alkaline Phosphatase 82 U/L (38-126); Anion Gap 7 mmol/L (8-16); Aspartate Amino Transferase 29 U/L (17-59); Bilirubin,Total 0.5 mg/dL (0.2-1.3); Blood Urea Nitrogen 8 mg/dL (9-20); Calcium 8.2 mg/dL (8.4-10.2); Carbon Dioxide 28 mmol/L (22-30); Chloride 103 mmol/L (98-107); Estimated CRCL calculation 151 ml/min; Estimated Glomerular Filt Rate > 60; Glucose 110 mg/dL (65-110); Potassium 3.6 mmol/L (3.4-5.0); Sodium 138 mmol/L (137-145)
== END 2023-07-18 19:02 | disposition left against medical advice (07) ==
LOC: ANHED 18:58
PROVIDERS: Emergency Provider Emergency Medicine
DX: R42 Dizziness and giddiness (principal)
CPT/HCPCS: 36415; 80053; 85025; 93005; 99199

== ENCOUNTER 2024-03-11 13:23 | Observation (INO) | payer OTHER, SELFPAY ==
[2024-03-11] VITALS (13 sets, daily range): BP systolic 156–185; BP diastolic 96–125; PULSE 92–102; RESP 15–25; O2SAT 92–100
--- NOTE | ~2024-03-11 | CT_ITS ---
EXAMINATION: CTA chest PE protocol DATE: 03/11/2024 18:54 INDICATION: Dyspnea. TECHNIQUE: Computed tomography angiography (CTA) of the chest was performed with 100 mL Omnipaque-350 intravenous contrast timed to evaluate the pulmonary arteries. Coronal maximum intensity projection 3D-reconstructions were created by the technologist. Automated exposure control and iterative reconst ruction technique were employed. The dose-length product was 1080.49 mGy-cm. COMPARISON: None. FINDINGS: There is mild atelectasis in the lingula. No pleural effusion. The heart size is normal. No pericardial effusion. There is no pulmonary embolus. There is a 3 mm stone in right kidney. There ar e 3 mm and 11 mm stones in left kidney. The gallbladder is distended. There is mild thoracic spondylo sis. IMPRESSION: 1. No pulmonary embolus. Sensitivity is moderately decreased by motion artifact. 2. Gallbladder distention, which may be secondary to fasting. Correlate with physical exam to exclude acute cholecystitis. Reviewed, dictated and finalized at location E. IMPRESSION: 1. No pulmonary embolus. Sensitivity is moderately decreased by motion artifact . 2. Gallbladder distention, which may be secondary to fasting. Correlate with ph ysical exam to exclude acute cholecystitis.
--- NOTE | ~2024-03-11 | XR_ITS ---
XR chest 1V portable 03/11/2024 14:14 Indication: Dyspnea Procedure: AP portable chest Comparison: No prior studies for comparison. Findings: Heart size normal. Bilateral interstitial infiltrates with peribronchial thickening. No ple ural effusion or pneumothorax. Impression: 1: Bilateral interstitial infiltrates which may represent mild edema or pneumonia. Reviewed, dictated and finalized at location B. Impression: 1: Bilateral interstitial infiltrates which may represent mild edema or pneumon ia.
--- NOTE | 2024-03-11 13:32 | ECG_ITS ---
SEE SCANNED COPY FOR CONFIRMED REPORT MTDD
[2024-03-11 13:55] LABS: Basophils Percent Auto 0.4 % (0.2-1.2); Eosinophils Absolute Auto 0.2 K/mm3 (0-0.3); Eosinophils Percent Auto 1.8 % (0-4.4); Hematocrit 49.1 % (42.0-52.0); Hemoglobin 16.1 g/dL (14.0-18.0); Immature Granulocyte Absolute 0.02 K/mm3 (0.00-0.031); Immature Granulocyte Percent A 0.2 % (0-0.5); Lymphocytes Percent Auto 16.7 % (18.3-44.2); Mean Corpuscular HGB Conc 32.8 g/dl (32-36); Mean Corpuscular Hemoglobin 27.6 pg (26-34); Mean Corpuscular Volume 84.2 fl (80-100); Mean Platelet Volume 11.4 fl (7.4-10.4); Monocytes Absolute Auto 0.7 K/mm3 (0.1-0.6); Monocytes Percent Auto 7.5 % (2.6-8.5); Neutrophils Absolute Auto 6.6 K/mm3 (1.3-6.7); Neutrophils Percent Auto 73.4 % (45.5-73.1); Platelet Count Result 278 k/mm3 (150-375); Red Blood Count 5.83 M/mm3 (4.6-6.20); Red Cell Distribution Width 14.4 % (11.5-14.5)
[2024-03-11 14:06] LABS: INR 0.9; Prothrombin Time 12.2 Seconds (11.1-14.7)
[2024-03-11 14:07] LABS: Alanine Aminotransferase 26 U/L (6-50); Albumin Level 4.4 g/dL (3.5-5.1); Alkaline Phosphatase 88 U/L (38-126); Anion Gap 7 mmol/L (4-12); Aspartate Amino Transferase 35 U/L (17-59); Bilirubin,Total 0.9 mg/dL (0.2-1.3); Blood Urea Nitrogen 14 mg/dL (9-20); Carbon Dioxide 27 mmol/L (22-30); Chloride 107 mmol/L (98-107); Estimated CRCL calculation 117 ml/min; Estimated Glomerular Filt Rate > 60; Glucose 128 mg/dL (65-110); Partial Thromboplastin Time 26.3 Seconds (22.3-36.8); Potassium 3.5 mmol/L (3.4-5.0); Sodium 141 mmol/L (137-145)
[2024-03-11 14:26] LABS: NT Pro B Type Natriuretic Pept 505 pg/mL (19.9-100); Troponin I 0.044 ng/mL (0.000-0.034)
--- NOTE | 2024-03-11 16:24 | ED.EXTPRO ---
HPI - Extremity Problem General Chief complaint: Extremity Problem,Nontraumatic Stated complaint: dyspnea, LE swelling Time Seen by Provider: 03/11/24 15:08 History of Present Illness HPI Narrative: Patient is a 43-year-old male with no past medical history, marijuana smoker here with lower extremity edema and exertional dyspnea. He states that in 2021 he was admitted for COVID and had some difficulty with breathing since that time. He notes this been progressively worsening in the last week he has felt horrible. He notes exertional shortness of breath, significant fatigue at the end of the day, no chest pain. He does note he has additionally been having lower extremity edema which is pitting in nature, waxes and wanes throughout the day. No prior history of PE or DVT. No personal cardiac history. He does note that his mother heart attack in her 50s. No prior cardiac workup outpatient for patient. He denies cough, congestion fever, chills. No known sick contacts. Related Data Home Medications Medication Instructions Recorded Confirmed No Home Medications 03/12/24 03/12/24 Allergies Allergy/AdvReac Type Severity Reaction Status Date / Time codeine Allergy Mild Other Verified 04/19/22 17:05 Penicillins Allergy Mild Other Verified 04/19/22 17:05 Review of Systems Review of Systems: All systems reviewed & are unremarkable except as noted in HPI and below PMFSH Past Medical History Medical History Patient denies significant medical history Social History Social History Smoking status: Never smoker Alcohol intake: former Substance use: never Do You Feel Safe in your Home?: Yes Lack of Transportation: No Lack of Food: Never True Current Housing: I Have Housing Concerned About Future Housing: No Difficulty Paying Gas/Electric Bills: No Difficulty Paying for Meds: No Currently Unemployed: No Education: Decline to Answer Difficulty w/ Childcare or Family Care: No Spiritual care concerns: No Exam Narrative: GENERAL: Well-appearing, well-nourished, and in no acute distress. HEAD: Normocephalic, atraumatic. EYES: PERRLA and EOMI. ENT: Nares clear. Mucous membranes moist. NECK: Supple. CHEST: Clear to auscultation. No respiratory distress. HEART: Regular rate and rhythm. Normal peripheral pulses. ABDOMEN: Soft, nontender, nondistended. EXTREMITIES: Normal range of motion. Bilateral lower extremity pitting edema, no calf tenderness. SKIN: Warm, dry, no rash. NEURO: No focal deficits. Alert and oriented x3. PSYCH: Normal mood and affect. Course Course Emergency Course: Chart review performed, patient here for dyspnea, left lower extremity swelling, shortness of breath. Triage vitals show hypertension, tachypnea, tachycardia. No visible history of CHF in our system. Triage lab work reviewed. CBC grossly unremarkable. CMP grossly normal. Troponin elevated at 0.044, BNP elevated at 505. CXR shows bilateral infiltrates consistent with edema versus pneumonia. Patient seen evaluated, nontoxic appearing. Concern for new onset CHF given chest x-ray, lower extremity edema and symptomatology. Will add on D-dimer given tachycardia in triage, unable to rule out with PERC criteria. Will additionally do COVID, influenza, RSV. Dose of IV Lasix ordered. Patient agreeable to workup and plan. D-dimer elevated, PE study ordered. PE study negative for PE. Case discussed with hospitalist and patient accepted for admission. Vital Signs Vital signs: Vital Signs Pulse Rate 101 H 03/11/24 13:41 Respiratory Rate 22 H 03/11/24 13:41 Blood Pressure 185/103 H 03/11/24 13:41 Pulse Oximetry 98 03/11/24 13:41 Temperature 97.4 F L 03/12/24 05:46 Pulse Rate 84 03/12/24 05:46 Respiratory Rate 20 03/12/24 05:46 Blood Pressure 177/107 H 03/12/24 05:46
[2024-03-11 17:30] LABS: D Dimer 3.85 ug/mL (<0.48)
[2024-03-11] MEDS: FUROSEMIDE INJ 40 MG/4 ML VIAL IV PUSH (17:33)
[2024-03-11 18:20] LABS: Influenza A QL RT-PCR Negative (Negative); Influenza B QL RT-PCR Negative (Negative); RSV RNA, RT-PCR Negative (Negative); SARS-CoV-2 RNA PCR Negative (Negative)
[2024-03-11 20:22] LABS: Troponin I 0.047 ng/mL (0.000-0.034)
[2024-03-11] MEDS: ASPIRIN 81 MG CHEWABLE TABLET 324 MG PO (22:28)
[2024-03-11] MEDS: carvediloL 12.5 MG TABLET PO (22:28)
[2024-03-11 23:14] LABS: Troponin I 0.048 ng/mL (0.000-0.034)
[2024-03-12] VITALS (8 sets, daily range): BP systolic 172–178; BP diastolic 95–118; PULSE 83–88; RESP 18–20; TEMP 36.3–36.6; O2SAT 96–99; BMI 46.2
--- NOTE | 2024-03-12 | ECHO_ITS ---
Patient Info Name: Denver Colbert Age: 43 years : 1980 Gender: Male Ht: 66 in Wt: 286 lbs BSA: 2.53 m2 HR: 89 bpm BP: 177 / 107 mmHg Heart Rhythm: Sinus Rhythm Technical Quality: Fair Exam Date: 03/12/2024 2:24 PM Exam Location: Echo Lab Patient Status: Outpatient Admit Date: 03/11/2024 Staff Ordering Physician: Karan Anderson APRN Copy Editor: Emily Manrique RDCS Attending Provider: Manuela Bowles DO Referring Physician: Johan Mcdermott MD; Exam Type: CA echo doppler color flow Study Info Indications I50.20 - Unspecified systolic (congestive) heart failure Complete two-dimensional, color flow and Doppler transthoracic echocardiogram is performed. Summary 1. Complete two-dimensional, color flow and Doppler transthoracic echocardiogram is performed. 2. Concentric left ventricular hypertrophy with vigorous systolic function and grade 2 diastolic noncompliance. 3. Trivial amount of mitral regurgitation. Left Ventricle Left ventricular chamber dimension is normal. Left ventricular systolic function is normal, estimated at 65-70%. There is moderate concentric increased left ventricular wall thickness. The left ventricular diastolic function is grade II diastolic dysfunction. Right Ventricle Right ventricular chamber dimension is normal. Left Atria Left atrial chamber dimension is normal. Right Atria Right atrial chamber dimension is normal. Aortic Valve The aortic valve is normal. Pulmonic Valve The pulmonic valve is not well visualized. Mitral Valve The mitral valve has normal leaflets. There is trace mitral valve regurgitation. Tricuspid Valve The tricuspid valve leaflets are not well visualized. Pericardium/Pleural The pericardium appears normal. Aorta The aortic root size at the sinus of Valsalva is normal. Left Ventricular Outflow Tract Name Value Normal LVOT Doppler LVOT Peak Gradient 5 mmHg LVOT Mean Gradient 2 mmHg LVOT VTI 17 cm LVOT VTI/AV VTI Ratio 0.8 Pulmonic Valve Name Value Normal RVOT Doppler RVOT Peak Gradient 2 mmHg PV Doppler PV Peak Gradient 5 mmHg Mitral Valve Name Value Normal MV Doppler MV [place] 602 cm/s2 MV PHT 44 ms MV Area (PHT) 5.1 cm2 4.0-5.0 MV Diastolic Function MV E Peak Velocity 90 cm/s MV A Peak Velocity 58 cm/s MV E/A 1.6 MV Decel Time
--- NOTE | 2024-03-12 00:23 | ADMGEN ---
This patient, Denver Colbert, was admitted to [facility] Surg Room 314-02. Patient/family oriented to hospital policies and general routines including ID bracelet, bed and alarms, visiting hours, pain management, procedures, bathroom and other care routines, personal items, smoking policy, room service/diet, and visiting hours. Information on how to activate the Rapid Response Team has been discussed. Patient/Family are encouraged to report perceived risks to care and to ask questions if they do not understand what they are told or what they should do.
--- NOTE | 2024-03-12 09:23 | PM.CNCAR ---
Assessment and Plan Assessment and plan (1) New onset of congestive heart failure: Code(s): I50.9 - Heart failure, unspecified Status: Acute Assessment and Plan: Start Lasix 40mg IV Daily. Please monitor strict I/Os. Echocardiogram ordered and pending. (2) Hypertension: Code(s): I10 - Essential (primary) hypertension Status: Acute Assessment and Plan: Uncontrolled. Will start Losartan 50mg once daily. (3) Elevated troponin: Code(s): R79.89 - Other specified abnormal findings of blood chemistry Status: Acute Assessment and Plan: Mildly elevated and flat. No chest pain. Likely demand ischemia from CHF, not consistent with ACS. History of Present Illness History of Present Illness Consult date/time: 03/12/24 09:23 Requesting physician: Kate Oreilly MD Consult reason: Other (Elevated troponin) Reason For Visit: Elevated Troponin/HTN Narrative: We are consulted for elevated troponin. This is a 43 year old male with daily marijuana use, morbid obesity who presented with worsening lower extremity edema. Since his COVID infection in 2021, patient reports occasional shortness of breath and lower extremity edema that has seemed to progressive over the last few days. No chests pain. Was given IV Lasix on admission and is feeling better. Patient is hypertensive this admission. Does not check his blood pressure at home, does not have a PCP. No tobacco use. Quit drinking alcohol in 2021. EKG shows sinus rhythm, PACs, nonspecific STTW abnormality. Troponins are 0.044, 0.047, 0.048. NT pro BNP 505. CXR with bilateral interstitial infiltrates which may represent mild edema or pneumonia. Chest CTA negative for PE, no pleural effusions. Review of Systems Review of Systems: All systems reviewed & are unremarkable except as noted in HPI and below (HPI) [facility] Past Medical History Medical History Patient denies significant medical history Social History Social History Smoking status: Never smoker Alcohol intake: former Substance use: never Do You Feel Safe in your Home?: Yes Lack of Transportation: No Lack of Food: Never True Current Housing: I Have Housing Concerned About Future Housing: No Difficulty Paying Gas/Electric Bills: No Difficulty Paying for Meds: No Currently Unemployed: No Education: Decline to Answer Difficulty w/ Childcare or Family Care: No Spiritual care concerns: No Meds Home Medications and Allergies Home Medications Medication Instructions Recorded Confirmed Type No Home Medications 03/12/24 03/12/24 History Allergies Allergy/AdvReac Type Severity Reaction Status Date / Time codeine Allergy Mild Other Verified 04/19/22 17:05 Penicillins Allergy Mild Other Verified 04/19/22 17:05 Vital Signs Vital Signs - 24 hr 03/11/24 13:41 03/11/24 14:53 03/11/24 13:41 Temperature Pulse Rate 101 H 96 102 H Respiratory Rate 22 H 22 H 23 H Blood Pressure 185/103 H 156/115 H 185/103 H Pulse Oximetry 98 97 98 Oxygen Delivery 03/11/24 13:46 03/11/24 14:31 03/11/24 15:16 Temperature Pulse Rate 98 93 92 Respiratory Rate 25 H 21 H 21 H Blood Pressure 172/100 H 156/115 H 170/118 H Pulse Oximetry 96 95 100 Oxygen Delivery 03/11/24 16:01 03/11/24 16:47 03/11/24 17:30 Temperature Pulse Rate 93 96 93 Respiratory Rate 20 15 19 Blood Pressure 161/109 H 163/107 H Pulse Oximetry 97 96 96 Oxygen Delivery 03/11/24 17:31 03/11/24 19:01 03/11/24 22:28 Temperature Pulse Rate 100 97 98 Respiratory Rate 15 20 Blood Pressure 181/125 H 182/98 H Pulse Oximetry 92 93 Oxygen Delivery 03/11/24 22:10 03/11/24 23:59 03/12/24 00:23 Temperature 36.6 C Pulse Rate 93 97 88 Respiratory Rate 16 17 20 Blood Pressure 181/96 H 172/100 H Pulse Oximetry 97 96 96 Oxygen Delivery
[2024-03-12 10:00] LABS: Cholesterol 178 mg/dL (0-200); HDL Direct 36 mg/dL; Triglycerides 205 mg/dL (<150)
[2024-03-12 10:03] LABS: Hemoglobin A1C 5.9 % (<5.7)
[2024-03-12 10:11] LABS: LDL Cholesterol Direct 103 mg/dL
--- NOTE | 2024-03-12 10:37 | PM.IMHP ---
H&P: HPI History of Present Illness Date/Time: 03/12/24 10:37 Chief Complaint: Shortness of breath, leg swelling Narrative: This is a 43-year-old male patient reports no 5 past medical history but he has been having swelling in his lower extremities and difficulty breathing ongoing for couple years since he had COVID in 2021. Patient reports that yesterday he just got tired of dealing with it so he came to the emergency department. Emergency department workup was concerning for congestive heart failure. Troponin was minimally elevated but flat. Likely due to CHF. He received IV Lasix and was admitted for echocardiogram cardiology consult. Patient denies any chest pain nausea vomiting constipation diarrhea fever chills or other concerning symptoms. No prior surgical history. Patient reports his only admission to the hospital was as a child for pneumonia. Review of Systems Review of Systems: All systems reviewed & are unremarkable except as noted in HPI and below PMFSH Past Medical History Medical History Patient denies significant medical history Social History Social History Smoking status: Never smoker Alcohol intake: former Substance use: never Do You Feel Safe in your Home?: Yes Lack of Transportation: No Lack of Food: Never True Current Housing: I Have Housing Concerned About Future Housing: No Difficulty Paying Gas/Electric Bills: No Difficulty Paying for Meds: No Currently Unemployed: No Education: Decline to Answer Difficulty w/ Childcare or Family Care: No Spiritual care concerns: No Meds Home Medications and Allergies Home Medications Medication Instructions Recorded Confirmed Type No Home Medications 03/12/24 03/12/24 History Allergies Allergy/AdvReac Type Severity Reaction Status Date / Time codeine Allergy Mild Other Verified 04/19/22 17:05 Penicillins Allergy Mild Other Verified 04/19/22 17:05 Vital Signs Vital Signs - 24 hr 03/11/24 13:41 03/11/24 14:53 03/11/24 13:41 Temperature Pulse Rate 101 H 96 102 H Respiratory Rate 22 H 22 H 23 H Blood Pressure 185/103 H 156/115 H 185/103 H Pulse Oximetry 98 97 98 Oxygen Delivery 03/11/24 13:46 03/11/24 14:31 03/11/24 15:16 Temperature Pulse Rate 98 93 92 Respiratory Rate 25 H 21 H 21 H Blood Pressure 172/100 H 156/115 H 170/118 H Pulse Oximetry 96 95 100 Oxygen Delivery 03/11/24 16:01 03/11/24 16:47 03/11/24 17:30 Temperature Pulse Rate 93 96 93 Respiratory Rate 20 15 19 Blood Pressure 161/109 H 163/107 H Pulse Oximetry 97 96 96 Oxygen Delivery 03/11/24 17:31 03/11/24 19:01 03/11/24 22:28 Temperature Pulse Rate 100 97 98 Respiratory Rate 15 20 Blood Pressure 181/125 H 182/98 H Pulse Oximetry 92 93 Oxygen Delivery 03/11/24 22:10 03/11/24 23:59 03/12/24 00:23 Temperature 36.6 C Pulse Rate 93 97 88 Respiratory Rate 16 17 20 Blood Pressure 181/96 H 172/100 H Pulse Oximetry 97 96 96 Oxygen Delivery 03/12/24 02:30 03/12/24 04:00 03/12/24 05:46 Temperature 36.3 C L Pulse Rate 88 83 84 Respiratory Rate 20 20 Blood Pressure 177/107 H Pulse Oximetry 96 98 Oxygen Delivery Room Air 03/12/24 08:14 Temperature Pulse Rate Respiratory Rate Blood Pressure Pulse Oximetry 96 Oxygen Delivery Room Air Exam Narrative: GENERAL: Well-appearing, well-nourished, and in no acute distress. HEAD: Normocephalic, atraumatic. EYES: PERRLA and EOMI. ENT: Nares clear. Mucous membranes moist. NECK: Supple. CHEST: Clear to auscultation. No respiratory distress. HEART: Regular rate and rhythm. Normal peripheral pulses. ABDOMEN: Soft, nontender, nondistended. EXTREMITIES: Normal range of motion. Mild non pitting edema no calf tenderness SKIN: Warm, dry, no rash. NEURO: No focal deficits. Alert and oriented x3. PS
[2024-03-12] MEDS: FUROSEMIDE INJ 40 MG/4 ML VIAL IV PUSH (10:59)
[2024-03-12] MEDS: LOSARTAN POTASSIUM 50 MG TABLET PO (10:59)
--- NOTE | 2024-03-12 18:24 | PC.NURSE ---
This RN reinserted new dominguez 15 F at this time d/t pt failing voiding trial. VSS. Report given to [facility], aware of pt returning with dominguez and plan for OP f/u with urology.IVs d/c'd at this time.
[2024-03-13] VITALS: BP 159/106; PULSE 79; PULSE 87; RESP 20; TEMP 36.3; O2SAT 98
[2024-03-13 04:00] VITALS: BP 171/115; PULSE 78; PULSE 81; RESP 18; TEMP 36.3; O2SAT 98
[2024-03-13 06:33] LABS: Basophils Percent Auto 0.4 % (0.2-1.2); Eosinophils Absolute Auto 0.2 K/mm3 (0-0.3); Eosinophils Percent Auto 2.6 % (0-4.4); Hematocrit 52.9 % (42.0-52.0); Hemoglobin 16.8 g/dL (14.0-18.0); Immature Granulocyte Absolute 0.03 K/mm3 (0.00-0.031); Immature Granulocyte Percent A 0.4 % (0-0.5); Lymphocytes Absolute Auto 1.78 K/mm3 (0.9-3.2); Lymphocytes Percent Auto 20.8 % (18.3-44.2); Mean Corpuscular HGB Conc 31.8 g/dl (32-36); Mean Corpuscular Hemoglobin 27.4 pg (26-34); Mean Corpuscular Volume 86.2 fl (80-100); Mean Platelet Volume 10.9 fl (7.4-10.4); Monocytes Absolute Auto 0.7 K/mm3 (0.1-0.6); Monocytes Percent Auto 7.7 % (2.6-8.5); Neutrophils Absolute Auto 5.8 K/mm3 (1.3-6.7); Neutrophils Percent Auto 68.1 % (45.5-73.1); Platelet Count Result 279 k/mm3 (150-375); Red Blood Count 6.14 M/mm3 (4.6-6.20); Red Cell Distribution Width 14.2 % (11.5-14.5); White Blood Count 8.6 K/mm3 (4.5-10.0)
[2024-03-13 06:43] LABS: Alanine Aminotransferase 26 U/L (6-50); Albumin Level 4.2 g/dL (3.5-5.1); Alkaline Phosphatase 81 U/L (38-126); Anion Gap 6 mmol/L (4-12); Aspartate Amino Transferase 28 U/L (17-59); Bilirubin,Total 1.6 mg/dL (0.2-1.3); Blood Urea Nitrogen 14 mg/dL (9-20); Calcium 8.9 mg/dL (8.4-10.2); Carbon Dioxide 29 mmol/L (22-30); Chloride 104 mmol/L (98-107); Estimated CRCL calculation 131 ml/min; Estimated Glomerular Filt Rate > 60; Glucose 125 mg/dL (65-110); Magnesium 2.2 mg/dL (1.6-2.3); Potassium 3.8 mmol/L (3.4-5.0); Sodium 139 mmol/L (137-145)
--- NOTE | 2024-03-13 08:22 | PM.IMPN ---
Progress Note: A&P Assessment and Plan (1) New onset of congestive heart failure: Code(s): I50.9 - Heart failure, unspecified Status: Acute Assessment and Plan: - Lasix 40 mg daily. Monitor I/O - Chest XR 03/11/24: Bilateral interstitial infiltrates which may represent mild edema or pneumonia. - Chest CTA 03/11/24: No PE or pleural effusions - Echo 03/12/24: Concentric left ventricular hypertrophy with LVEF 65-70%. Grade 2 diastolic noncompliance. - Cardiology evaluated patient (2) Elevated troponin: Code(s): R79.89 - Other specified abnormal findings of blood chemistry Status: Acute Assessment and Plan: Patient remained asymptomatic. Troponin were mildly elevated and flat. Cardiology evaluated patient and report the elevation is likely demand ischemia secondary to CHF. Findings are not consistent with ACS. - EKG sinus rhythm, PACs (3) Hypertension: Code(s): I10 - Essential (primary) hypertension Status: Acute Assessment and Plan: Uncontrolled. Started on losartan 50 mg daily. Blood pressure continues to be elevated. - Subjective Date/time seen: 03/13/24 08:22 Exam Narrative: AF General: well nourished, well-developed male in no acute respiratory distress who is nontoxic appearing, lying semi recumbent in bed. HEENT: Normocephalic. Atraumatic. Pupils equal round reactive to light. Extraocular movement intact. Sclera clear and anicteric. Nares patent. No oral lesions. Moist mucous membranes. Tongue is midline. Palate chioma symmetrically. No facial asymmetry. Neck: Neck was supple. No dominant adenopathy, thyromegaly or masses. 2+ carotid upstrokes without bruits. Chest: Lungs are clear to auscultation bilaterlly. No wheezes or crackles. CV: Heart was regular rate and rhythm. S1/S2. No murmurs, gallops, or rubs. Abd: Abdomen was soft. Nontender. Nondistended. Postive bowel sounds. No organomegaly or masses. Ext: No clubbing, cyanosis, or edema. 2+ DP pulses bilaterally. Neuro: Patient is alert and oriented x4. Strenth is 5/5 in both upper and lower extremities. Cranial nerves 2-12 are intact. Speech is clear. Psych: Normal nood and affect. Patient is pleasant and cooperative. Skin: Warm and dry. No rashes noted. Objective Data Vital Signs Vital Signs: Vital Signs - 24 hr 03/12/24 13:47 03/12/24 21:04 03/12/24 20:00 Temperature 97.9 F 97.5 F L Pulse Rate 88 88 Respiratory Rate 18 18 Blood Pressure 178/95 H 172/118 H Pulse Oximetry 97 99 99 Oxygen Delivery Room Air 03/13/24 00:00 03/12/24 20:00 03/13/24 00:00 Temperature 97.3 F L Pulse Rate 79 84 87 Respiratory Rate 20 Blood Pressure 159/106 H Pulse Oximetry 98 Oxygen Delivery 03/13/24 04:00 03/13/24 04:00 Temperature 97.3 F L Pulse Rate 78 81 Respiratory Rate 18 Blood Pressure 171/115 H Pulse Oximetry 98 Oxygen Delivery Intake/Output Intake/Output: Intake & Output 03/10/24 03/11/24 03/12/24 03/13/24 23:59 23:59 23:59 23:59 Intake Total 720 Balance 720 Meds/Results Medications: Active Medications Generic Name Dose Route Start Last Admin Trade Name Freq PRN Reason Stop Dose Admin Acetaminophen 650 mg 03/12/24 07:22 Acetaminophen 325 Mg Tablet PO Q4H PRN Pain or Fever Furosemide 40 mg 03/12/24 09:25 03/12/24 10:59 Furosemide Inj 40 Mg/4 Ml Vial IV PUSH 40 mg DAILY [place] Administration Losartan Potassium 50 mg 03/12/24 09:25 03/12/24 10:59 Losartan Potassium 50 Mg Tablet PO 50 mg DAILY [place] Administration Ondansetron HCl 4 mg 03/12/24 07:22 Ondansetron Inj 4 Mg/2 Ml Vial IV PUSH Q6H PRN Nausea And Vomiting Perflutren Lipid Microsphere 0 ml 03/12/24 07:14 Perflutren Lipid Microspheres 1.5 Ml Vial Diluted To 10 Ml Total Volume IV PUSH 03/15/24 07:14 ONCE PRN adequate visualization Protocol Radiology Results: ITS Impressions Chest X-Ray 03/11/24 14:16 I
--- NOTE | 2024-03-13 09:47 | PM.PNCARD ---
Progress Note: A&P Assessment and Plan (1) New onset of congestive heart failure: Code(s): I50.9 - Heart failure, unspecified Status: Acute Assessment and Plan: Presented with shortness of breath and lower extremity edema. NT pro BNP elevated at 505. CXR with mild edema. Echocardiogram 03/12 shows concentric left ventricular hypertrophy with LVEF 65-70%, grade 2 diastolic dysfunction. Has improved with IV Lasix. Will switch to PO Lasix. Diastolic heart failure likely caused by uncontrolled hypertension. Working on blood pressure control as noted below. (2) Hypertension: Code(s): I10 - Essential (primary) hypertension Status: Acute Assessment and Plan: Uncontrolled. Started Losartan 50mg once daily, will increase to 100mg once daily. Will start Spironolactone 25mg once daily. He will need close outpatient follow up for his hypertension. Will have him see us in the office. He does need to get established with a PCP. Will need workup for secondary hypertension as an outpatient. Recommend sleep study to evaluate for KENYON as an outpatient. (3) Elevated troponin: Code(s): R79.89 - Other specified abnormal findings of blood chemistry Status: Acute Assessment and Plan: Mildly elevated and flat. No chest pain. Likely demand ischemia from CHF, not consistent with ACS. Plan Anticipate discharge later today. Will arrange for close outpatient follow up in our office. Recommendations and plan discussed with Hospitalist. Subjective Date/time seen: 03/13/24 09:47 Interval history: Reason for visit: CHF, HTN HPI: We are consulted for elevated troponin. This is a 43 year old male with daily marijuana use, morbid obesity who presented with worsening lower extremity edema. Since his COVID infection in 2021, patient reports occasional shortness of breath and lower extremity edema that has seemed to progressive over the last few days. No chests pain. Was given IV Lasix on admission and is feeling better. Patient is hypertensive this admission. Does not check his blood pressure at home, does not have a PCP. No tobacco use. Quit drinking alcohol in 2021. EKG shows sinus rhythm, PACs, nonspecific STTW abnormality. Troponins are 0.044, 0.047, 0.048. NT pro BNP 505. CXR with bilateral interstitial infiltrates which may represent mild edema or pneumonia. Chest CTA negative for PE, no pleural effusions. Date of service 03/13: Feeling well today. His lower extremity edema has significantly improved with the IV Lasix. Blood pressures are still elevated. Review of Systems Review of Systems: All systems reviewed & are unremarkable except as noted in HPI and below (HPI) Exam Const: General: comfortable and no acute distress Eyes: General: appearance normal, both eyes and all related structures Sclera: sclerae normal Resp: Effort & Inspection: normal respiratory effort Cardio: Rate: regular rate Rhythm: regular rhythm Skin: General skin exam: normal color Neuro: Speech: normal speech Psych: Mental Status: mental status grossly normal Affect: normal affect Objective Data Vital Signs Vital Signs: Vital Signs - 24 hr 03/12/24 13:47 03/12/24 21:04 03/12/24 20:00 Temperature 36.6 C 36.4 C L Pulse Rate 88 88 Respiratory Rate 18 18 Blood Pressure 178/95 H 172/118 H Pulse Oximetry 97 99 99 Oxygen Delivery Room Air 03/13/24 00:00 03/12/24 20:00 03/13/24 00:00 Temperature 36.3 C L Pulse Rate 79 84 87 Respiratory Rate 20 Blood Pressure 159/106 H Pulse Oximetry 98 Oxygen Delivery 03/13/24 04:00 03/13/24 04:00 Temperature 36.3 C L Pulse Rate 78 81 Respiratory Rate 18 Blood Pressure 171/115 H Pulse Oximetry 98 Oxygen Delivery Intake/Output Intake/Output: Intake & Output 03/10/24 03/11/24 03/12/24 03/13/24 23:59 23:59 23:59 23:59 Intake Total 720 Balance 720 Meds/Results Medications: Active Medications Generic Name Dose Rou
[2024-03-13] MEDS: FUROSEMIDE 40 MG TABLET PO (10:02)
[2024-03-13] MEDS: SPIRONOLACTONE 25 MG TABLET PO (10:03)
[2024-03-13] MEDS: LOSARTAN POTASSIUM 50 MG TABLET 100 MG PO (10:03)
--- NOTE | 2024-03-13 12:23 | PM.DS ---
DS: Admitting Diagnosis Discharge Date 03/13/24 Admitting Diagnosis Heart failure Hypertension Elevated troponin DS: Discharge Diagnosis Discharge Diagnosis (1) New onset of congestive heart failure: Code(s): I50.9 - Heart failure, unspecified Status: Acute (2) Hypertension: Code(s): I10 - Essential (primary) hypertension Status: Acute (3) Elevated troponin: Code(s): R79.89 - Other specified abnormal findings of blood chemistry Status: Acute DS: Summary Hospital Course Reason for hospitalization: Heart failure Hypertension Elevated troponin Hospital Course: 43 year old male with daily marijuana use and obesity reported to the hospital for swelling of his lower extremities and difficulty breathing since he had Covid in 2021. He states these symptoms have gotten increasingly worse over the past few weeks. In the ED patient was found to have an elevated BNP of 505, mild edema on CXR, elevated troponin, and an elevated d dimer. A CTA chest was negative for PE. He received a dose of IV lasix for the edema and an echo revealed concentric left ventricular hypertrophy with LVEF 65-70%, grade 2 diastolic dysfunction. He was evaluated by cardiology for the new heart failure diagnosis, elevated troponin, and uncontrolled hypertension. Due to the troponin being mildly elevated, flat and the patient remaining asymptomatic the elevation is likely related to demand ischemia secondary to CHF. Cardiology transitioned patient from IV to PO lasix, started him on losartan 100 mg daily and spironolactone 25 mg daily. Prior to discharge discussed the medications with the patient. He states understanding. Patient discharged home in a stable condition. Discussed with him the importance of following up with a PCP. He received a list of PCP in the area to follow up with. He will also follow up with cardiology in regards to the new heart failure diagnosis and new medications. Status at Discharge Functional status at discharge: independent ambulation Time Spent with Patient Time attestation: Total time spent providing and/or coordinating discharge services: Time spent: Greater than 30 minutes Exam Narrative: AF HR 81 RR 18 SpO2 98 BP 171/115 General: well nourished, well-developed male in no acute respiratory distress who is nontoxic appearing, sitting up in bed HEENT: Normocephalic. Atraumatic. Pupils equal round reactive to light. Extraocular movement intact. Sclera clear and anicteric. No facial asymmetry. Neck: Neck was supple. No dominant adenopathy, thyromegaly or masses. 2+ carotid upstrokes without bruits. Chest: Lungs are clear to auscultation bilaterally. No wheezes or crackles. CV: Heart was regular rate and rhythm. S1/S2. No murmurs, gallops, or rubs. Abd: Abdomen was soft. Nontender. Nondistended. Positive bowel sounds. No organomegaly or masses. Ext: No clubbing, cyanosis, or edema. 2+ DP pulses bilaterally. Neuro: Patient is alert and oriented x4. Speech is clear. Psych: Normal mood and affect. Patient is pleasant and cooperative. Skin: Warm and dry. No rashes noted. DS: Data Data Completed and Pending Completed studies during hospitalization: Chest CTA Chest XR Echo Labs on day of discharge: Labs from last 24 hours 03/13/24 06:16 WBC 8.6 RBC 6.14 Hgb 16.8 Hct 52.9 H MCV 86.2 MCH 27.4 MCHC 31.8 L RDW 14.2 Plt Count 279 MPV 10.9 H Immature Gran % (Auto) 0.4 Neut % (Auto) 68.1 Lymph % (Auto) 20.8 [place] % (Auto) 7.7 Eos % (Auto) 2.6 Baso % (Auto) 0.4 Lymph # (Auto) 1.78 [place] # (Auto) 0.7 H Eos # (Auto) 0.2 Baso # (Auto) 0.0 Abs Immat Gran (auto) 0.03 Absolute Neuts (auto) 5.8 Absolute Nucleated RBC 0.000 Nucleated RBC % 0.0 Sodium 139 Potassium 3.8 Chloride 104 Carbon Dioxide 29 Anion Gap 6 BUN 14 Creatinine 0.80 Estim Creat Clear Calc 131 Estimated GFR > 60 Glucose 125 H Calcium 8.9 Magnesium 2.2 Total Bilirubin 1.6 H AST 28
== END 2024-03-13 13:36 | disposition home or self-care (01) ==
LOC: ANHED 20:22 → ANH3MEDSUR 03-12
PROVIDERS: Emergency Medicine; Internal Medicine; Nurse Practitioner; Student in an Organized Health Care Education/Training Program; Admitting Provider Internal Medicine; Emergency Provider Emergency Medicine; Referring Provider Emergency Medicine; Visit Provider Family Medicine
DX: I11.0 Hypertensive heart disease with heart failure (principal); I50.30 Unspecified diastolic (congestive) heart failure; R79.89 Other specified abnormal findings of blood chemistry; R91.8 Other nonspecific abnormal finding of lung field; E66.01 Morbid (severe) obesity due to excess calories; Z68.42 Body mass index [BMI] 45.0-49.9, adult; Z86.16 Personal history of COVID-19; F12.90 Cannabis use, unspecified, uncomplicated
CPT/HCPCS: 36415; 71045; 71275; 80053; 80061; 83036; 83735; 83880; 84443; 84484; 85025; 85380; 85610; 85730; 87637; 93005; 93306; 96374; 99285; A9270; G0378; G0379; J1940; Q9967

== ENCOUNTER 2024-06-20 06:18 | Emergency (ER) | payer OTHER, SELFPAY ==
--- NOTE | ~2024-06-20 | XR_ITS ---
EXAMINATION: XR chest 2V DATE: 06/20/2024 06:55 INDICATION: Chest pain. Hypertension. TECHNIQUE: PA and lateral views of the chest were obtained. COMPARISON: Chest radiograph and CT dated 03/11/24 FINDINGS: The lungs are clear with no focal airspace opacities, pulmonary edema, pleural effusion or pneumothor ax. The cardiomediastinal silhouette is normal. Visualized bones and soft tissues are unremarkable. IMPRESSION: 1. No acute cardiopulmonary disease. Reviewed, dictated and finalized at location A.
--- NOTE | ~2024-06-20 | CT_ITS ---
EXAMINATION: CTA chest PE protocol DATE: 06/20/2024 08:49 INDICATION: Chest pain and feeling of heart fluttering TECHNIQUE: Computed tomography (CT) pulmonary angiogram of the chest was performed with 100 mL Omnipa que-350 intravenous contrast. Additional 3D reconstructions utilizing coronal maximum intensity proje ction (MIP) were performed. Automated exposure control and iterative reconstruction technique were em ployed. The dose-length product was 1039.44 mGy-cm. COMPARISON: 03/11/2024 FINDINGS: No pulmonary embolism. No pneumonia, pulmonary edema or pleural effusion. Heart size is normal. No pe ricardial effusion. Thoracic aorta is normal in caliber with no dissection. No pathologically enlarge d thoracic lymphadenopathy. Hepatic calcification consistent with old granulomatous disease. 3 mm sto ne at the upper pole of the right kidney. IMPRESSION: 1. No pulmonary embolism or other acute cardiopulmonary disease. 2. 3 mm right renal stone. Reviewed, dictated and finalized at location A.
--- NOTE | 2024-06-20 06:19 | ECG_ITS ---
Test Date: 2024-06-20 06:30:54 Measurements Intervals [place] Rate: 100 P: 47 UT: 140 QRS: 63 QRSD: 109 T: 52 QT: 367 QTc: 474 Interpretive Statements SINUS TACHYCARDIA INCOMPLETE RIGHT BUNDLE BRANCH BLOCK DELAYED PRECORDIAL R/S TRANSITION ST-T WAVE ABNORMALITY IN INF/LAT LEADS- CONSIDER ISCHEMIA BASELINE ARTIFACT- I, II, III, AVR, AVL, V1-V2, V5 ABNORMAL ECG No previous ECG available for comparison Electronically Signed On 06-20-2024 07:49:52 CDT by Braden Fernandez D.O.
[2024-06-20 06:21] VITALS: BP 142/100; PULSE 110; RESP 22; TEMP 36.6; O2SAT 97
[2024-06-20 06:42] VITALS: BP 145/91; PULSE 102; RESP 16; O2SAT 96
[2024-06-20 06:44] LABS: Basophils Absolute Auto 0.1 K/mm3 (0.0-0.1); Basophils Percent Auto 0.6 % (0.2-1.2); Eosinophils Absolute Auto 0.3 K/mm3 (0-0.3); Eosinophils Percent Auto 3.5 % (0-4.4); Hematocrit 44.4 % (42.0-52.0); Hemoglobin 15.3 g/dL (14.0-18.0); Immature Granulocyte Absolute 0.06 K/mm3 (0.00-0.031); Immature Granulocyte Percent A 0.6 % (0-0.5); Lymphocytes Absolute Auto 2.67 K/mm3 (0.9-3.2); Lymphocytes Percent Auto 28.2 % (18.3-44.2); Mean Corpuscular HGB Conc 34.5 g/dl (32-36); Mean Corpuscular Hemoglobin 29.2 pg (26-34); Mean Corpuscular Volume 84.7 fl (80-100); Mean Platelet Volume 10.7 fl (7.4-10.4); Monocytes Absolute Auto 0.8 K/mm3 (0.1-0.6); Monocytes Percent Auto 7.9 % (2.6-8.5); Neutrophils Absolute Auto 5.6 K/mm3 (1.3-6.7); Neutrophils Percent Auto 59.2 % (45.5-73.1); Platelet Count Result 333 k/mm3 (150-375); Red Blood Count 5.24 M/mm3 (4.6-6.20); Red Cell Distribution Width 15.2 % (11.5-14.5); White Blood Count 9.5 K/mm3 (4.5-10.0)
[2024-06-20 06:53] LABS: INR 0.9; Prothrombin Time 12.5 Seconds (11.1-14.7)
[2024-06-20 06:54] LABS: Partial Thromboplastin Time 29.3 Seconds (22.3-36.8)
[2024-06-20 06:55] LABS: Alanine Aminotransferase 31 U/L (6-50); Albumin Level 4.5 g/dL (3.5-5.1); Alkaline Phosphatase 78 U/L (38-126); Anion Gap 12 mmol/L (4-12); Aspartate Amino Transferase 31 U/L (17-59); Bilirubin,Total 0.6 mg/dL (0.2-1.3); Blood Urea Nitrogen 17 mg/dL (9-20); Calcium 8.9 mg/dL (8.4-10.2); Carbon Dioxide 27 mmol/L (22-30); Chloride 101 mmol/L (98-107); Estimated CRCL calculation 114 ml/min; Estimated Glomerular Filt Rate > 60; Glucose 151 mg/dL (65-110); Lipase 57 U/L (23-300); Potassium 3.7 mmol/L (3.4-5.0); Sodium 140 mmol/L (137-145)
[2024-06-20 07:07] LABS: NT Pro B Type Natriuretic Pept 61 pg/mL (19.9-100)
--- NOTE | 2024-06-20 07:19 | ED.CHESTPAIN ---
HPI - Chest Pain General Chief Complaint: Chest Pain Stated Complaint: CP/SOB Time Seen by Provider: 06/20/24 06:55 History of Present Illness HPI narrative: 43-year-old male present to the emergency department for evaluation for 2 weeks of cough congestion 1 week of chest tightness and chest pain. Patient describes the pain as a tightness that does not radiate to his back neck or arms. Patient denies any prior history of MS but does have history of congestive heart failure. Patient reports he does had a stress test recently that was negative. Related Data Allergies Allergy/AdvReac Type Severity Reaction Status Date / Time codeine Allergy Mild Other Verified 06/20/24 06:18 Penicillins Allergy Mild Other Verified 06/20/24 06:18 Review of Systems Review of Systems: All systems reviewed & are unremarkable except as noted in HPI and below PMFSH Past Medical History Medical History Patient denies significant medical history Social History Social History Smoking status: Never smoker Alcohol intake: former Substance use: never Do You Feel Safe in your Home?: Yes Lack of Transportation: No Lack of Food: Never True Current Housing: I Have Housing Concerned About Future Housing: No Difficulty Paying Gas/Electric Bills: No Difficulty Paying for Meds: No Currently Unemployed: No Education: Decline to Answer Difficulty w/ Childcare or Family Care: No Spiritual care concerns: No Exam Narrative: APPEARANCE: Well appearing, no pain, no distress, well-nourished. HEAD: normocephalic, atraumatic. EYES: PERRLA/EOMI, conjunctivae clear. NOSE: Normal no drainage EARS:TMS clear with good light reflex. THROAT: Pharynx clear, no exudate. NECK: Supple. No adenopathy, no masses. RESPIRATORY: Airway patent, respirations nonlabored. Clear to auscultation bilaterally, no rales, rhonchi, wheezing. CARDIOVASCULAR: Regular rate and rhythm without murmurs rubs or gallops. ABDOMINAL: Soft, nontender, nondistended, normal bowel sounds MUSCULOSKELETAL: Moves all extremities. Strength/ROM intact, No edema, No calf tenderness. NEURO: Alert. Cranial nerves II through XII intact. Grossly intact SKIN: Warm, dry. Normal Color Course Course Emergency Course: Patient was discharged home with instructions for close outpatient follow-up. Vital Signs Vital signs: Vital Signs Temperature 97.8 F 06/20/24 06:21 Pulse Rate 110 H 06/20/24 06:21 Respiratory Rate 22 H 06/20/24 06:21 Blood Pressure 142/100 H 06/20/24 06:21 Pulse Oximetry 97 06/20/24 06:21 Oxygen Delivery Room Air 06/20/24 06:21 Temperature 97.8 F 06/20/24 06:21 Pulse Rate 91 06/20/24 10:32 Respiratory Rate 18 06/20/24 10:32 Blood Pressure 127/88 06/20/24 10:32 Pulse Oximetry 97 06/20/24 10:32 Oxygen Delivery Room Air 06/20/24 07:39 MDM - Chest Pain MDM Narrative Medical decision making narrative: [age] old male present to the emergency department for evaluation for cough congestion and exertional shortness breath that is been ongoing for the last few weeks. Patient is afebrile with no leukocytosis and a stable hemoglobin. INR is within normal limits but patient's D-dimer was elevated., CTA shows no evidence of pulmonary embolism. Patient has normal kidney function with no acute abnormalities on his CMP. Patient had negative serial troponins. Patient was negative for influenza RSV and for COVID. Patient was updated the results of his workup. Patient was strongly encouraged to have close follow-up with his primary care physician Differential Diagnosis Differential diagnosis: Likely fracture of rib, pneumothorax, unstable angina pectoris, atypical chest pain, st elevation myocardial infarction, costochondritis, chest pain and biliary colic Lab Data Attestation: I reviewed the patient's lab results.
[2024-06-20 07:41] VITALS: BP 129/90; PULSE 103; RESP 27; O2SAT 97
[2024-06-20 07:42] VITALS: PULSE 104
[2024-06-20 08:20] LABS: D Dimer 3.91 ug/mL (<0.48)
[2024-06-20 08:23] LABS: Influenza A QL RT-PCR Negative (Negative); Influenza B QL RT-PCR Negative (Negative); RSV RNA, RT-PCR Negative (Negative); SARS-CoV-2 RNA PCR Negative (Negative)
[2024-06-20 09:07] VITALS: BP 146/98; PULSE 91; RESP 27; O2SAT 97
--- NOTE | 2024-06-20 09:09 | ECG_ITS ---
Test Date: 2024-06-20 09:15:43 Measurements Intervals [place] Rate: 88 P: 155 [place]: 158 QRS: -11 QRSD: 101 T: 159 QT: 356 QTc: 431 Interpretive Statements SINUS RHYTHM POSSIBLE LEFT ATRIAL ENLARGEMENT LOW QRS VOLTAGE IN LIMB LEADS INCOMPLETE RIGHT BUNDLE BRANCH BLOCK BORDERLINE R WAVE PROGRESSION, ANTERIOR LEADS NONSPECIFIC ST-T WAVE ABNORMALITY- INF/LAT LEADS BASELINE WANDER- II, III BORDERLINE ECG Compared to ECG 06/20/2024 06:30:54 ST ABNORMALITY IMPROVED Electronically Signed On 06-20-2024 09:18:47 CDT by Braden Fernandez D.O.
[2024-06-20 09:43] LABS: Troponin I 0.016 ng/mL (0.000-0.034)
[2024-06-20 10:32] VITALS: BP 127/88; PULSE 91; RESP 18; O2SAT 97
== END 2024-06-20 10:33 | disposition home or self-care (01) ==
PROVIDERS: Student in an Organized Health Care Education/Training Program; Emergency Provider Emergency Medicine
DX: R07.89 Other chest pain (principal); Z20.822 Contact with and (suspected) exposure to COVID-19
CPT/HCPCS: 36415; 71046; 71275; 80053; 83690; 83880; 84484; 85025; 85380; 85610; 85730; 87637; 93005; 99284; Q9967

== ENCOUNTER 2024-10-30 08:10 | Observation (INO) | payer OTHER, SELFPAY ==
[2024-10-30] VITALS (20 sets, daily range): BP systolic 107–185; BP diastolic 68–117; PULSE 89–111; RESP 15–31; TEMP 36.7–37.6; O2SAT 93–100; BMI 46.9
--- NOTE | ~2024-10-30 | XR_ITS ---
EXAMINATION: XR chest 2V DATE: 10/30/2024 08:56 INDICATION: Centralized chest pain and T2-3 days of cough TECHNIQUE: PA and lateral views of the chest were obtained. COMPARISON: Chest radiograph and CT dated 06/20/2024 FINDINGS: New mild opacities in the posterior left perihilar region. No other airspace opacities, pulmonary tatiana ma, pleural effusion or pneumothorax. The cardiomediastinal silhouette is normal. Mild thoracic spond ylosis. IMPRESSION: 1. New mild left perihilar opacities which could represent or atelectasis or pneumonia. Reviewed, dictated and finalized at location A. SERVICE TECH IMPRESSION: 1. New mild left perihilar opacities which could represent or atelectasis or pn eumonia.
--- NOTE | 2024-10-30 08:11 | ECG_ITS ---
Test Date: 2024-10-30 08:19:24 Measurements Intervals [place] Rate: 89 P: 54 [place]: 157 QRS: -68 QRSD: 106 T: 114 QT: 367 QTc: 447 Interpretive Statements SINUS RHYTHM POSSIBLE LEFT ATRIAL ENLARGEMENT [-0.1mV P-WAVE IN V1/V2] INCOMPLETE RIGHT BUNDLE BRANCH BLOCK [90+ ms QRS DURATION, TERMINAL R IN V1/V2, 40+ ms S IN I/aVL/V4/V5/V6] LEFT ANTERIOR FASCICULAR BLOCK [QRS AXIS <= -45, QR IN I, RS IN II] ST DEVIATION AND MODERATE T-WAVE ABNORMALITY, CONSIDER INFERIOR AND LATERAL ISCHEMIA [-0.1+ mV T-WAVE IN I/aVL/V5/V6] ABNORMAL ECG Compared to ECG 06/20/2024 09:15:43 Left anterior fascicular block now present T-wave abnormality now present Possible ischemia now present Electronically Signed On 10-30-2024 10:59:34 [employer] by Ghulam Zarate M.D.
[2024-10-30] MEDS: ASPIRIN 81 MG CHEWABLE TABLET 324 MG PO (08:22)
[2024-10-30 08:36] LABS: Basophils Percent Auto 0.6 % (0.2-1.2); Eosinophils Absolute Auto 0.2 K/mm3 (0-0.3); Eosinophils Percent Auto 2.3 % (0-4.4); Hematocrit 46.7 % (42.0-52.0); Hemoglobin 15.5 g/dL (14.0-18.0); Immature Granulocyte Absolute 0.03 K/mm3 (0.00-0.031); Immature Granulocyte Percent A 0.5 % (0-0.5); Lymphocytes Absolute Auto 1.08 K/mm3 (0.9-3.2); Lymphocytes Percent Auto 16.2 % (18.3-44.2); Mean Corpuscular HGB Conc 33.2 g/dl (32-36); Mean Corpuscular Hemoglobin 28.7 pg (26-34); Mean Corpuscular Volume 86.5 fl (80-100); Mean Platelet Volume 10.5 fl (7.4-10.4); Monocytes Absolute Auto 0.7 K/mm3 (0.1-0.6); Monocytes Percent Auto 10.5 % (2.6-8.5); Neutrophils Absolute Auto 4.7 K/mm3 (1.3-6.7); Neutrophils Percent Auto 69.9 % (45.5-73.1); Platelet Count Result 272 k/mm3 (150-375); Red Cell Distribution Width 13.7 % (11.5-14.5); White Blood Count 6.7 K/mm3 (4.5-10.0)
[2024-10-30 08:50] LABS: Alanine Aminotransferase 32 U/L (6-50); Albumin Level 4.3 g/dL (3.5-5.1); Alkaline Phosphatase 78 U/L (38-126); Anion Gap 6 mmol/L (4-12); Aspartate Amino Transferase 37 U/L (17-59); Bilirubin,Total 0.8 mg/dL (0.2-1.3); Blood Urea Nitrogen 10 mg/dL (9-20); Calcium 8.4 mg/dL (8.4-10.2); Carbon Dioxide 28 mmol/L (22-30); Chloride 104 mmol/L (98-107); Estimated CRCL calculation 122 ml/min; Estimated Glomerular Filt Rate > 60; Glucose 123 mg/dL (65-110); Lipase 55 U/L (23-300); Potassium 3.7 mmol/L (3.4-5.0); Sodium 138 mmol/L (137-145)
[2024-10-30 08:59] LABS: NT Pro B Type Natriuretic Pept 237 pg/mL (19.9-100)
[2024-10-30 09:07] LABS: Prothrombin Time 13.4 Seconds (11.1-14.7); Troponin I 0.036 ng/mL (0.000-0.034)
--- NOTE | 2024-10-30 09:13 | ED_ITS ---
HPI - General Adult General Chief complaint: Chest Pain Stated complaint: chest pain and cough Time Seen by Provider: 10/30/24 08:29 History of Present Illness HPI narrative: [age] old male presenting emergency department for evaluation for cough and congestion with associated pleuritic chest pain. Patient does have history of hypertension and CHF. Patient denies any prior smoking history. Patient states since some he has had worsening cough and congestion. Patient states he does have rib and abdominal pain from excessive coughing. Related Data Home Medications Medication Instructions Recorded Confirmed amlodipine 10 mg tablet 10 mg PO DAILY 10/30/24 10/30/24 Allergies Allergy/AdvReac Type Severity Reaction Status Date / Time codeine Allergy Mild Other Verified 10/30/24 08:20 Penicillins Allergy Mild Other Verified 10/30/24 08:20 Review of Systems Review of Systems: All systems reviewed & are unremarkable except as noted in HPI and below PMFSH Past Medical History Medical History (Updated 10/30/24 @ 19:02 by Heriberto Wheeler MD) Asthma BPH (benign prostatic hyperplasia) Diastolic heart failure Echo, 03/12/2024: EF 65-70%, grade 2 diastolic dysfunction. Hypertension Social History Social History Smoking status: Never smoker Second hand tobacco smoke exposure: Yes Alcohol intake: never Substance use: current Substance use type: marijuana Other substance usage details: joint - once a month Do You Feel Safe in your Home?: Yes Lack of Transportation: No Lack of Food: Never True Current Housing: I Have Housing Concerned About Future Housing: No Difficulty Paying Gas/Electric Bills: No Difficulty Paying for Meds: No Currently Unemployed: No Education: Decline to Answer Difficulty w/ Childcare or Family Care: No Spiritual care concerns: No Exam Narrative: APPEARANCE: Well appearing, no pain, no distress, well-nourished. HEAD: normocephalic, atraumatic. EYES: PERRLA/EOMI, conjunctivae clear. NOSE: Normal no drainage EARS:TMS clear with good light reflex. THROAT: Pharynx clear, no exudate. NECK: Supple. No adenopathy, no masses. RESPIRATORY: Wheezing respiration bilaterally CARDIOVASCULAR: Regular rate and rhythm without murmurs rubs or gallops. ABDOMINAL: Soft, nontender, nondistended, normal bowel sounds MUSCULOSKELETAL: Moves all extremities. Strength/ROM intact, No edema, No calf tenderness. NEURO: Alert. Cranial nerves II through XII intact. Grossly intact SKIN: Warm, dry. Normal Color Course Course Emergency Course: Patient was admitted to the hospitalist for pneumonia and elevated cardiac enzymes Vital Signs Vital signs: Vital Signs Temperature 98.2 F 10/30/24 08:14 Pulse Rate 97 10/30/24 08:14 Respiratory Rate 26 H 10/30/24 08:14 Blood Pressure 185/117 H 10/30/24 08:14 Pulse Oximetry 96 10/30/24 08:14 Oxygen Delivery Room Air 10/30/24 08:14 Temperature 99.7 F H 10/30/24 16:22 Pulse Rate 98 10/30/24 18:00 Respiratory Rate 24 H 10/30/24 16:22 Blood Pressure 159/86 H 10/30/24 16:22 Pulse Oximetry 96 10/30/24 16:22 Oxygen Delivery Room Air 10/30/24 16:00 Fraction of Inspired Oxygen 21 10/30/24 13:35 Medical Decision Making [facility] Narrative Medical decision making narrative: 43 old male with history of CHF presenting to the emergency department for deja luation for increased cough congestion and shortness of breath. Patient was negative for influenza RSV and for COVID. Patient was afebrile with no leukocytosis and a stable hemoglobin of 15.5. No acute abnormalities on the CMP patient's lactic acid is elevated at 2.7. Patient's BNP was elevated at 242. Chest x-ray was concerning for pneumonia and patient was started on antibiotics in the emergency department, blood cultures were ordered. Discussed case with hospitalist patient was accepted for admission. Patient is not having any significant chest pain did not feel that the elevated troponin was related to acute infarction. Plan developed with the hospitalist to await the repeat trop onin and to determine if the patient need to be treated as an NSTEMI at that point. At time of admission patient is not being treated as an NSTEMI. Patient was comfortable the plan for admission. All questions and concerns were addressed. Differential Diagnosis Differential Diagnosis: ACS, NSTEMI, pneumonia, pulmonary embolism Medical Records Medical records reviewed: Yes I reviewed the external patient's medical records. Vital Signs Vital Signs: Vital Signs Temperature 98.2 F 10/30/24 08:14 Pulse Rate 97 10/30/24 08:14 Respiratory Rate 26 H 10/30/24 08:14 Blood Pressure 185/117 H 10/30/24 08:14 Pulse Oximetry 96 10/30/24 08:14 Oxygen Delivery Room Air 10/30/24 08:14 Temperature 99.7 F H 10/30/24 16:22 Pulse Rate 98 10/30/24 18:00 Respiratory Rate 24 H 10/30/24 16:22 Blood Pressure 159/86 H 10/30/24 16:22 Pulse Oximetry 96 10/30/24 16:22 Oxygen Delivery Room Air 10/30/24 16:00 Fraction of Inspired Oxygen 21 10/30/24 13:35 Lab Data Lab results reviewed: Yes I reviewed the patient's lab results. 10/30/24 08:27 10/30/24 08:27 Labs: Lab Results 10/30/24 10/30/24 Range/Units 08:27 08:27 WBC 6.7 (4.5-10.0) K/mm3 RBC 5.40 (4.6-6.20) M/mm3 Hgb 15.5 (14.0-18.0) g/dL Hct 46.7 (42.0-52.0) % MCV 86.5 (80-100) fl MCH 28.7 (26-34) pg MCHC 33.2 (32-36) g/dl RDW 13.7 (11.5-14.5) % Plt Count 272 (150-375) k/mm3 MPV 10.5 H (7.4-10.4) fl Immature Gran % (Auto) 0.5 (0-0.5) % Neut % (Auto) 69.9 (45.5-73.1) % Lymph % (Auto) 16.2 L (18.3-44.2) % [place] % (Auto) 10.5 H (2.6-8.5) % Eos % (Auto) 2.3 (0-4.4) % Baso % (Auto) 0.6 (0.2-1.2) % Lymph # (Auto) 1.08 (0.9-3.2) K/mm3 [place] # (Auto) 0.7 H (0.1-0.6) K/mm3 Eos # (Auto) 0.2 (0-0.3) K/mm3 Baso # (Auto) 0.0 (0.0-0.1) K/mm3 Abs Immat Gran (auto) 0.03 (0.00-0.031) K/mm3 Absolute Neuts (auto) 4.7 (1.3-6.7) K/mm3 Absolute Nucleated RBC 0.000 (0.0-0.012) K/mm3 Nucleated RBC % 0.0 (0.0-0.2) % PT 13.4 (11.1-14.7) Seconds INR 1.0 APTT 29.0 (22.3-36.8) Seconds Sodium 138 (137-145) mmol/L Potassium 3.7 (3.4-5.0) mmol/L Chloride 104 (98-107) mmol/L Carbon Dioxide 28 (22-30) mmol/L Anion Gap 6 (4-12) mmol/L BUN 10 D (9-20) mg/dL Creatinine 0.90 (0.7-1.3) mg/dL Estim Creat Clear Calc 122 ml/min Estimated GFR > 60 (59 - ) Glucose 123 H (65-110) mg/dL Calcium 8.4 (8.4-10.2) mg/dL Total Bilirubin 0.8 (0.2-1.3) mg/dL AST 37 (17-59) U/L ALT 32 (6-50) U/L Alkaline Phosphatase 78 (38-126) U/L Troponin I 0.036 H* (0.000-0.034) ng/mL NT-Pro-B Natriuret Pep 237 H 242 H (19.9-100) pg/mL Total Protein 8.0 (6.3-8.2) g/dL Albumin 4.3 (3.5-5.1) g/dL Lipase 55 (23-300) U/L Influenza A (RT-PCR) Negative (Negative) Influenza B (RT-PCR) Negative (Negative) RSV (RT-PCR) Negative (Negative) SARS-CoV-2 RNA (RT-PCR) Negative (Negative) ECG Data EKG #1: EKG Interpretation: tachycardia, sinus rhythm, no ectopy, non-specific ST changes, normal QRS and NL axis Critical Care Time Critical Care Time Critical Care Time: Yes Total Critical Care Time: 35 Discharge Plan Discharge Clinical Impression: Pneumonia, Elevated troponin Patient Disposition: Still a Patient Condition: Serious
[2024-10-30 09:14] LABS: Influenza A QL RT-PCR Negative (Negative); Influenza B QL RT-PCR Negative (Negative); RSV RNA, RT-PCR Negative (Negative); SARS-CoV-2 RNA PCR Negative (Negative)
[2024-10-30] MEDS: ALBUTEROL SULFATE NEB 2.5 MG/3 ML INH 5 MG INHALATION (09:18)
[2024-10-30 09:38] LABS: NT Pro B Type Natriuretic Pept 242 pg/mL (19.9-100)
--- NOTE | 2024-10-30 10:18 | PC.NURSE ---
Called dietary per pt request and ordered a lunch tray for pt as requested.
[2024-10-30] MEDS: AZITHROMYCIN 500 MG/NS 250 ML 500 MG/250 ML BAG 250 MG IVPB (10:40)
--- NOTE | 2024-10-30 11:12 | ECG_ITS ---
Test Date: 2024-10-30 11:22:20 Measurements Intervals [place] Rate: 102 P: 23 GA: 136 QRS: 81 QRSD: 102 T: 91 QT: 363 QTc: 473 Interpretive Statements SINUS TACHYCARDIA INCOMPLETE RIGHT BUNDLE BRANCH BLOCK [90+ ms QRS DURATION, TERMINAL R IN V1/V2, 40+ ms S IN I/aVL/V4/V5/V6] MODERATE ST DEPRESSION [0.05+ mV ST DEPRESSION], CONSIDER INFERIOR AND LATERAL ISCHEMIA ABNORMAL ECG Electronically Signed On 10-30-2024 14:58:58 [employer] by Ghulam Zarate M.D.
--- NOTE | 2024-10-30 11:47 | ADMGEN ---
This patient, Denver Colbert, was admitted to IMU Room 209-01. Patient/family oriented to hospital policies and general routines including ID bracelet, bed and alarms, visiting hours, pain management, procedures, bathroom and other care routines, personal items, smoking policy, room service/diet, and visiting hours. Information on how to activate the Rapid Response Team has been discussed. Patient/Family are encouraged to report perceived risks to care and to ask questions if they do not understand what they are told or what they should do.
[2024-10-30 12:07] LABS: Troponin I 0.024 ng/mL (0.000-0.034)
--- NOTE | 2024-10-30 12:35 | P.HP_ITS ---
H&P: HPI History of Present Illness Date/Time: 10/30/24 12:35 Chief Complaint: Chest Pain, Cough, Shortness of Breath Narrative: 43 y/o M presents here with chest pain, cough, shortness of breath with PMH of CHF and hypertension. The patient presents here from home for further evaluation of chest pain, cough, shortness of breath. Patient initially started with a cough and congestion around Monday, 10/27. He reports cough was initially dry. Reports the cough has been progressively worsening and is now causing abdominal discomfort and chest wall discomfort. He describes the abdominal pain/chest wall pain as if someone is punching him in the stomach), nonradiating, only occurring with cough, and intermittent. Coughing or congestion or accompanied by shortness of breath and mild diaphoresis that was occurring with rest. Shortness of breath improved post-nebulizer. Denies associated fever, chills, body aches, chest pain, indigestion, nausea/vomiting, or dizziness. Initial VS at presentation: 98.2? F, HR 97, R are 26, 185/117, and 96% on RA. ED workup showed: No leukocytosis, no anemia, normal coags, no significant electrolyte derangements, creatinine 0.9 and GFR >60, glucose 123, BNP 242, and initial troponin 0.036. Viral PCR negative. CXR showed a new mild left perihilar opacity which could represent atelectasis or pneumonia. Review of Systems Review of Systems: All systems reviewed & are unremarkable except as noted in HPI and below PMFSH Past Medical History Medical History (Updated 10/30/24 @ 12:51 by Sonam Molina APRN) Asthma BPH (benign prostatic hyperplasia) Diastolic heart failure Echo, 03/12/2024: EF 65-70%, grade 2 diastolic dysfunction. Hypertension Social History Social History Smoking status: Never smoker Second hand tobacco smoke exposure: Yes Alcohol intake: never Substance use: current Substance use type: marijuana Other substance usage details: joint - once a month Do You Feel Safe in your Home?: Yes Lack of Transportation: No Lack of Food: Never True Current Housing: I Have Housing Concerned About Future Housing: No Difficulty Paying Gas/Electric Bills: No Difficulty Paying for Meds: No Currently Unemployed: No Education: Decline to Answer Difficulty w/ Childcare or Family Care: No Spiritual care concerns: No Meds Home Medications and Allergies Home Medications Medication Instructions Recorded Confirmed Type furosemide 40 mg tablet 40 mg PO DAILY #30 tabs 03/13/24 10/30/24 Rx losartan 50 mg tablet (Cozaar) 100 mg PO DAILY #30 tabs 03/13/24 10/30/24 Rx spironolactone 25 mg tablet 25 mg PO QAM #30 tabs 03/13/24 10/30/24 Rx amlodipine 10 mg tablet 10 mg PO DAILY 10/30/24 10/30/24 History Allergies Allergy/AdvReac Type Severity Reaction Status Date / Time codeine Allergy Mild Other Verified 10/30/24 08:20 Penicillins Allergy Mild Other Verified 10/30/24 08:20 Vital Signs Vital Signs - 24 hr 10/30/24 08:14 10/30/24 08:19 10/30/24 08:24 Temperature 98.2 F Pulse Rate 97 89 Respiratory Rate 26 H Blood Pressure 185/117 H Pulse Oximetry 96 94 Oxygen Delivery Room Air Room Air 10/30/24 09:18 10/30/24 09:27 10/30/24 09:21 Temperature Pulse Rate 98 111 H 97 Respiratory Rate 31 H 16 15 Blood Pressure Pulse Oximetry 99 Oxygen Delivery 10/30/24 10:14 10/30/24 11:22 10/30/24 12:10 Temperature 98.1 F Pulse Rate 110 H 105 H 103 H Respiratory Rate 20 23 H Blood Pressure 165/89 H 149/88 H 107/68 Pulse Oximetry 96 94 100 Oxygen Delivery Exam Const: General: comfortable and no acute distress Other: She is , male, obese body habitus, mildly ill-appearing HENMT: Face/Nose/Sinus: Normal nares present Mouth: Yes moist mucous membranes Eyes: General: appearance normal, both eyes and all related structures Sclera: sclerae normal Pupils: Equal, round and reactive pupils present EOM: EOMs intact bilaterally Resp: Other: mild tachypnea/work of breathing. diminished bibasilar (L>R), coarse with faint exp wheeze. Cardio: Rate: regular rate Rhythm: regular rhythm Other: S1-S2 present without murmur, rub, ectopy GI: Other: abdomen rounded, mildly firm. no tenderness. Skin: General skin exam: normal color and no rashes or lesions noted Wounds: no wounds Neuro: Speech: normal speech Motor exam (neuro): 5/5 motor strength present throughout Sensory Exam: normal sensation Other: A/Ox4 Extrem: General: normal to inspection Psych: Mental Status: mental status grossly normal Affect: normal affect Other: good insight and judgement, pleasant. H&P: Results Labs Labs: Short CBC 10/30/24 Range/Units 08:27 WBC 6.7 (4.5-10.0) K/mm3 Hgb 15.5 (14.0-18.0) g/dL Hct 46.7 (42.0-52.0) % Plt Count 272 (150-375) k/mm3 BMP 10/30/24 08:27 Sodium 138 Potassium 3.7 Chloride 104 Carbon Dioxide 28 BUN 10 D Creatinine 0.90 Glucose 123 H Calcium 8.4 Cardiac Enzymes 10/30/24 10/30/24 Range/Units 08:27 11:17 Troponin I 0.036 H* 0.024 D (0.000-0.034) ng/mL Liver Function 10/30/24 Range/Units 08:27 Total Bilirubin 0.8 (0.2-1.3) mg/dL AST 37 (17-59) U/L ALT 32 (6-50) U/L Alkaline Phosphatase 78 (38-126) U/L Albumin 4.3 (3.5-5.1) g/dL Assessment and Plan Assessment and plan (1) SIRS (systemic inflammatory response syndrome): Code(s): R65.10 - Systemic inflammatory response syndrome (SIRS) of non-infectious origin without acute organ dysfunction Status: Acute Assessment and Plan: - meets SIRS criteria: HR, RR - lactic acid and procalcitonin ordered - 30 mL/kg = 4L, given CHF hx will give 1L bolus and start slow transfusion of second 1L, assess toleration - suspected source: PNA - started on ceftriaxone and azithromycin - blood cultures drawn on 10/30, follow (2) Pneumonia: Qualifiers: Laterality: unspecified laterality Lung location: unspecified part of lung Pneumonia type: due to unspecified organism Qualified Code(s): J18.9 - Pneumonia, unspecified organism Code(s): J18.9 - Pneumonia, unspecified organism Status: Acute Assessment and Plan: - CXR: new mild left perihilar opacities which could represent or atelectasis or pneumonia. - risk factors and complicating factors: None - started on CAP tx: azithromycin and ceftriaxone on 10/30 - Viral PCR negative - sputum culture ordered - no supplemental O2 requirement - supportive care (3) Elevated troponin: Code(s): R79.89 - Other specified abnormal findings of blood chemistry Status: Acute Assessment and Plan: - EKG, initial: Sinus rhythm, rate 89, possible left atrial enlargement, incomplete RBBB, left anterior fascicular block, ST deviation and moderate T- wave abnormality (consider inferior and lateral ischemia). When compared to EKG done on 06/20/2024, left anterior fascicular block, T-wave abnormality, and possible ischemia now present. - EKG, repeat (1): When compared to EKG done earlier today, ST-T-wave deviation now present, sinus rhythm no longer present, left anterior fascicular block, T- wave abnormality, and possible ischemia no longer present. Awaiting formal read. - Troponin: 0.036 -> 0.024, 6 hr ordered - ASA 324 given, continue as ASA 81 mg daily - SL nitro PRN - telemetry monitoring (4) Diastolic heart failure: Qualifiers: Heart failure chronicity: chronic Qualified Code(s): I50.32 - Chronic diastolic (congestive) heart failure Code(s): I50.30 - Unspecified diastolic (congestive) heart failure Status: Chronic Assessment and Plan: - BNP 242 - most recent echo (02/2024): Concentric left ventricular hypertrophy with ferrous systolic function and grade 2 diastolic noncompliance, estimated EF 65- 70%. See report for further details. - currently on: Lasix 40 mg daily and spironolactone 25 mg daily, continue - monitor I&Os and daily weights - trend renal function (5) Hypertension: Qualifiers: Hypertension type: primary hypertension Qualified Code(s): I10 - Essential (primary) hypertension Code(s): I10 - Essential (primary) hypertension Status: Chronic Assessment and Plan: - chronic, currently 107/68 - continue home medications: amlodipine 10 mg daily and losartan 100 mg daily - monitor Plan Diet: Heart healthy GI Prophylaxis: Not currently indicated DVT Prophylaxis: SCDs Lines: Peripheral Code Status: Full code Quality VTE Prophylaxis VTE prophylaxis: mechanical ordered Hospitalist [facility] Advance Care Plan I have confirmed that the patient's Advanced Care Plan is present, code status is documented, or surrogate decision maker is listed in patient medical record.: Yes Medication Reconciliation I have utilized all available resources to obtain, update and review the patients current medications (includes all prescriptions, OTC, herbals, cannabis, and nutritional supplements).: Yes
[2024-10-30] MEDS: ALBUTEROL SULFATE NEB 2.5 MG/3 ML INH INHALATION ×2 (13:35→21:24)
[2024-10-30 13:39] LABS: Procalcitonin 0.1 ng/mL
[2024-10-30] MEDS: SODIUM CHLORIDE 0.9% IV 1,000 ML 999 ML IV CONT (13:55)
[2024-10-30] MEDS: SODIUM CHLORIDE 0.9% IV 1,000 ML 100 ML IV CONT (13:56)
[2024-10-30 14:43] LABS: Cholesterol 148 mg/dL (0-200); HDL Direct 24 mg/dL; Triglycerides 140 mg/dL (<150)
[2024-10-30 14:54] LABS: LDL Cholesterol Direct 92 mg/dL
[2024-10-30 15:12] LABS: Lactic Acid Reflex 2.1 mmol/L (0.7-2.0)
[2024-10-30 15:44] LABS: Troponin I 0.025 ng/mL (0.000-0.034)
[2024-10-30] MEDS: BENZOCAINE/MENTHOL (*BKC) 18 EA LOZENGE 1 LOZENGE PO ×3 (15:46→20:41)
--- NOTE | 2024-10-30 15:53 | PC.NURSE ---
Pt paged nurse infection prevention specialist light. Pt reports increased dyspnea, discomfort/heaviness to chest since starting IV fluids. IVF paused. RR 30 at rest. Lungs diminished with exp wheeze. Sonam, B[employer] LINING BANDER made aware. N.O. noted for Lasix 20mg.
[2024-10-30] MEDS: ACETAMINOPHEN 325 MG TABLET 650 MG PO ×2 (16:18→20:40)
[2024-10-30] MEDS: BENZONATATE 100 MG CAPSULE 200 MG PO (16:18)
[2024-10-30] MEDS: FUROSEMIDE INJ 40 MG/4 ML VIAL 20 MG IV PUSH (16:19)
[2024-10-30 17:55] LABS: Reflex Lactic Acid Yes or No Add Lactic
[2024-10-30 18:23] LABS: Lactic Acid 2.7 mmol/L (0.7-2.0)
[2024-10-30] MEDS: guaiFENesin 12 HR 600 MG TABCR PO (20:40)
[2024-10-30] MEDS: MELATONIN 5 MG TABLET PO (21:18)
[2024-10-30] MEDS: ALPRAZolam (*CRX) 0.25 MG TABLET PO (21:18)
--- NOTE | 2024-10-30 21:46 | PC.NURSE ---
Patient anxious and complaining of restlessness. Provider called and came to bedside to discuss with patient. Patient given anxiety medication and melatonin and states he is agreeable to staying. Patient called RN back to room about 15 minutes later requesting to leave AMA. Patient educated on the risks. Provider notified.
== END 2024-10-30 21:55 | disposition left against medical advice (07) ==
LOC: ANHED 08:40 → ANHIMU 10:54
PROVIDERS: Student in an Organized Health Care Education/Training Program; Admitting Provider General Practice; Emergency Provider Emergency Medicine; Visit Provider General Practice
DX: J18.9 Pneumonia, unspecified organism (principal); R79.89 Other specified abnormal findings of blood chemistry; I11.0 Hypertensive heart disease with heart failure; I50.32 Chronic diastolic (congestive) heart failure; J45.909 Unspecified asthma, uncomplicated; N40.0 Benign prostatic hyperplasia without lower urinary tract symptoms; Z20.822 Contact with and (suspected) exposure to COVID-19; Z79.899 Other long term (current) drug therapy
CPT/HCPCS: 36415; 71046; 80053; 80061; 83605; 83690; 83880; 84145; 84484; 85025; 85610; 85730; 87040; 87070; 87205; 87637; 93005; 94640; 96365; 96367; 96375; 99285; A9270; G0378; G0379; J0456; J0696; J1940; J7030

== ENCOUNTER 2025-06-17 14:41 | Emergency (ER) | payer OTHER, SELFPAY ==
[2025-06-17 14:52] VITALS: BP 172/81; PULSE 88; RESP 20; TEMP 36.7; O2SAT 97
--- NOTE | 2025-06-17 15:02 | ED_ITS ---
HPI - SOB/Dyspnea General Chief Complaint: Arrhythmia/Palpitations Stated Complaint: shortness of breath Time Seen by Provider: 06/17/25 15:00 Focused HPI: Patient is a 44-year-old male who presents to the ER with complaints of shortness of breath and heart fluttering. He reports his symptoms started on Monday night, 2 days ago. Patient endorses a history of congestive heart failure but denies any other medical history. He reports ?my heart feels weird but denies chest pain. Patient denies any recent fevers, new onset lower extremity swelling, or back pain. GENERAL: Ill-appearing, obese, and in no acute distress. HEAD: Normocephalic, atraumatic. CHEST: Clear to auscultation. ?Minimal respiratory distress. HEART: Regular rate and rhythm.? NEURO: ?Alert and oriented x3. Patient screened in triage and initial orders placed.? ?Additional care and disposition to be based upon?diagnostic testing and treatment. Related Data Home Medications ?Medication ?Instructions ?Recorded ?Confirmed ?Last Taken ?Type amlodipine 10 mg tablet 10 mg PO DAILY 10/30/24 10/30/24 10/30/24 History Allergies Allergy/AdvReac Type Severity Reaction Status Date / Time codeine Allergy Mild Other Verified 10/30/24 08:20 Penicillins Allergy Mild Other Verified 10/30/24 08:20 [facility] Past Medical History Medical History (Updated 10/30/24 @ 19:02 by Heriberto Wheeler MD) Asthma Diastolic heart failure Echo, 03/12/2024: EF 65-70%, grade 2 diastolic dysfunction. Hypertension BPH (benign prostatic hyperplasia) Social History Social History Smoking status: Never smoker Second hand tobacco smoke exposure: Yes Alcohol intake: never Substance use: current Substance use type: marijuana Other substance usage details: joint - once a month Do You Feel Safe in your Home?: Yes Lack of Transportation: No Lack of Food: Never True Current Housing: I Have Housing Concerned About Future Housing: No Difficulty Paying Gas/Electric Bills: No Difficulty Paying for Meds: No Currently Unemployed: No Education: Decline to Answer Difficulty w/ Childcare or Family Care: No Spiritual care concerns: No Course Vital Signs Vital signs: Vital Signs Temperature 36.7 C 06/17/25 14:52 Pulse Rate 88 06/17/25 14:52 Respiratory Rate 06/17/25 14:52 Blood Pressure 172/81 H 06/17/25 14:52 Pulse Oximetry 97 06/17/25 14:52 Oxygen Delivery Room Air 06/17/25 14:52 Temperature 36.7 C 06/17/25 14:52 Pulse Rate 88 06/17/25 14:52 Respiratory Rate 20 06/17/25 14:52 Blood Pressure 172/81 H 06/17/25 14:52 Pulse Oximetry 97 06/17/25 14:52 Oxygen Delivery Room Air 06/17/25 14:52 Discharge Plan Discharge Clinical Impression: (Ruled Out): Elevated troponin Patient Disposition: Elopement After Seen by Prov Patient Language: [place] Prescriptions: No Action losartan [Cozaar] 50 mg Tablet 100 mg PO DAILY Qty: 30 0RF furosemide 40 mg Tablet 40 mg PO DAILY Qty: 30 0RF spironolactone 25 mg Tablet 25 mg PO QAM Qty: 30 0RF amlodipine 10 mg tablet 10 mg PO DAILY Follow-up/Referrals: UNKNOWN,DOCTOR [Primary Care Provider] -
--- NOTE | 2025-06-17 15:30 | PC.NURSE ---
PT NOT IN LOBBY WHEN CALLED FOR ROOM
== END 2025-06-17 15:31 | disposition left against medical advice (07) ==
PROVIDERS: Emergency Provider Registered Nurse
DX: R06.02 Shortness of breath (principal); I49.8 Other specified cardiac arrhythmias; I11.0 Hypertensive heart disease with heart failure; I50.30 Unspecified diastolic (congestive) heart failure; N40.0 Benign prostatic hyperplasia without lower urinary tract symptoms; Z77.22 Contact with and (suspected) exposure to environmental tobacco smoke (acute) (chronic); Z79.899 Other long term (current) drug therapy
CPT/HCPCS: 99281

== ENCOUNTER 2025-08-05 07:33 | Outpatient (CLI) | payer OTHER, SELFPAY ==
[2025-08-05 08:29] LABS: Hematocrit 47.9 % (42.0-52.0); Hemoglobin 15.9 g/dL (14.0-18.0); Immature Granulocyte Percent A 0.6 % (0-0.5); Lymphocytes Absolute Auto 2.65 K/mm3 (0.9-3.2); Mean Corpuscular HGB Conc 33.2 g/dl (32-36); Mean Corpuscular Hemoglobin 28.7 pg (26-34); Mean Corpuscular Volume 86.5 fl (80-100); Nucleated Red Blood Cells Absolute Auto 0.000 K/mm3 (0.0-0.012); Nucleated Red Blood Cells Perc 0.0 % (0.0-0.2); Platelet Count Result 290 k/mm3 (150-375); Red Blood Count 5.54 M/mm3 (4.6-6.20); White Blood Count 8.5 K/mm3 (4.5-10.0)
[2025-08-05 08:47] LABS: Hemoglobin A1C 6.4 % (<5.7)
[2025-08-05 08:51] LABS: Alanine Aminotransferase 44 U/L (6-50); Albumin Level 4.3 g/dL (3.5-5.1); Alkaline Phosphatase 92 U/L (38-126); Anion Gap 8 mmol/L (4-12); Aspartate Amino Transferase 42 U/L (17-59); Bilirubin,Total 0.5 mg/dL (0.2-1.3); Blood Urea Nitrogen 16 mg/dL (9-20); Calcium 9.3 mg/dL (8.4-10.2); Carbon Dioxide 31 mmol/L (22-30); Chloride 102 mmol/L (98-107); Estimated Glomerular Filt Rate > 60; Glucose 139 mg/dL (65-110); Potassium 4.3 mmol/L (3.4-5.0); Sodium 141 mmol/L (137-145); Total Protein 7.7 g/dL (6.3-8.2)
== END 2025-08-05 07:34 | disposition home or self-care (01) ==
LOC: ANHLAB 07:36
PROVIDERS: Visit Provider Nurse Practitioner Adult Health
DX: I11.0 Hypertensive heart disease with heart failure (principal); I50.32 Chronic diastolic (congestive) heart failure
CPT/HCPCS: 36415; 80053; 83036; 85025